=== PATIENT | female | born 1985 | race Caucasian/White ===

== ENCOUNTER 2017-09-07 12:56 | Emergency (ER) | payer OTHER ==
[~2017-09-07] VITALS: Ht 160 cm; Wt 54.4 kg
[~2017-09-07 12:56] MED LIST: OMEPRAZOLE40 M1 PO; PERCOCET 5-3251 EACH PO; ZOFRAN ODT4 M1 SL
[2017-09-07 14:16] LABS: ABSOLUTE BASOPHIL COUNT 0 /CUMM (0.0-0.2); ABSOLUTE EOSINOPHIL COUNT 0 /CUMM (0.0-0.7); ABSOLUTE GRANULOCYTE CT 5.3 /CUMM (1.4-6.5); ABSOLUTE LYMPH COUNT 1.2 /CUMM (1.2-3.4); ABSOLUTE MONOCYTE COUNT 0.4 /CUMM (0.10-0.60); BASOPHIL % 0.6 % (0.0-2.0); EOSINOPHIL % 0.4 % (0-5); GRANULOCYTE % 75.8 % (42.2-75.2); HEMATOCRIT 36.3 % (37-47); MEAN CORPUSCULAR HGB 31.6 PG (27.0-31.0); MEAN CORPUSCULAR VOLUME 93.1 FL (81.0-99.0); MEAN PLATELET VOLUME 8.3 FL (7.4-10.4); PLATELET COUNT 227 /CUMM (130-400); RBC DISTRIBUTION WIDTH 13.6 % (11.5-14.5)
--- NOTE | 2017-09-07 14:20 | ED GI/GU/ABDOMINAL COMPLAINT ---
History of Present Illness General Chief Complaint: Female Urogenital Problems Stated Complaint: SOBBING "MY LEFT OVARY", VOMITING Source: patient, old records Exam Limitations: no limitations Vital Signs & Intake/Output Vital Signs & Intake/Output Vital Signs Date Time Temp Pulse Resp B/P B/P Pulse O2 O2 Flow FiO2 Mean Ox Delivery Rate 09/07 1644 77 18 113/69 100 Room Air ED Intake and Output 09/08 0000 09/07 1200 Intake Total Output Total Balance Patient 120 lb Weight Weight Reported by Patient Measurement Method Allergies Coded Allergies: Sulfa (Sulfonamide Antibiotics) (Severe, HIVES 08/31/17) metronidazole (From FLAGYL) (Severe, N/V/D 08/31/17) Reconcile Medications Clonazepam 1 MG TABLET 1 TAB PO BID ANXIETY (Reported) Clonazepam (Klonopin) 0.5 MG TABLET 1 TAB PO DAILY NEEDED PRN ANXIETY ( Reported) Gabapentin 100 MG CAPSULE 2 CAP PO TID ANXIETY (Reported) Nicotine Polacrilex (Nicotine Gum) 2 MG GUM 2 MG PO PRN SMOKING CESSATION ( Reported) Norethindrone-E.estradiol-Iron (Junel Fe 1 MG-20 Mcg Tablet) 1 MG-20 MCG (21)/75 MG (7) TABLET 1 TAB PO DAILY CONTROL (Reported) Omeprazole 40 MG CAPSULE.DR 1 CAP PO DAILY ACID REFLUX Ondansetron (Zofran Odt) 4 MG TAB.RAPDIS 1 TAB SL TID NAUSEA Ondansetron (Zofran Odt) 4 MG TAB.RAPDIS 1 TAB SL TID PRN nausea Oxycodone HCl/Acetaminophen (Percocet 5-325 MG Tablet) 5 MG-325 MG TABLET 1 TAB PO BID PAIN Oxycodone HCl/Acetaminophen (Percocet 5-325 MG Tablet) 5 MG-325 MG TABLET 1 TAB PO BID PRN pain Prazosin HCl (Unknown Strength) CAPSULE (Unknown Dose) UNKNOWN (Reported) Sertraline HCl (Unknown Strength) TABLET (Unknown Dose) UNKNOWN (Reported) Triage Note: TRIAGE: 31 Y/O FEMALE W EXTENSIVE GI HISTORY: J POUCH, C DIFF (IN THE PAST FROM ABX THAT CAUSED TOXIC MEGACOLON). C/O LEFT OVARY PAIN SINCE LAST NIGHT AT 2100. *NOT ACTIVELY BEING TREATED FOR C-DIFF Triage Nurses Notes Reviewed? yes ? n Is pt currently ? 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 Patient states pain feels as thought it is related to her left ovary. Patient has history of ovarian cyst and cyst rupture in the past, she is unsure of pain is the same. Pain began last night and has been gradually worsening since onset. Currrently pain is described as severe, 10/10. Patient also notes dysuria beginning today. The patient denies fevers, chills, vomiting,diarrhea. (Heather Montez) Past History Travel History Traveled to [place] past 21 day No Medical History Any Pertinent Medical History? see below for history Neurological: NONE EENT: NONE Cardiovascular: NONE Respiratory: NONE Gastrointestinal: C.DIFF COLITIS J. POUCH Hepatic: NONE Renal: NONE Musculoskeletal: NONE Psychiatric: NONE Endocrine: NONE Blood Disorders: NONE Cancer(s): NONE TRADEMARK ATTORNEY/Reproductive: NONE Surgical History Surgical History: cOMPLETE COLECTOMY Psychosocial History What is your primary language Icelandic Tobacco Use: Current Daily Use Daily Tobacco Use Amount/Type: => 5 Cigarettes daily ETOH Use: occasional use Illicit Drug Use: denies illicit drug use Family History Hx Contributory? No (Heather Montez) Review of Systems Review of Systems Constitutional: Reports: no symptoms. EENTM: Reports: no symptoms. Respiratory: Reports: no symptoms. Cardiovascular: Reports: no symptoms. GI: Reports: see HPI. Genitourinary: Reports: see HPI. Musculoskeletal: Reports: no symptoms. Skin: Reports: no symptoms. Neurological/Psychological: Reports: no symptoms. Hematologic/Endocrine: Reports: no symptoms. Immunologic/Allergic: Reports: no symptoms. All Other Systems: Reviewed and Negative (Heather Montez) Physical Exam Physical Exam General Appearance: well developed/nourished, no apparent distress, alert, awake Head: atraumatic, normal appearance Eyes: Bilateral: normal appearance. Ears, Nose, Throat, Mouth: hearing grossly normal Neck: normal inspection, supple, full range of motion Respiratory: normal breath sounds, no respiratory distress, lungs clear Cardiovascular: regular rate/rhythm Gastrointestinal: normal bowel sounds, soft, no organomegaly, LLQ tenderness Back: normal inspection, normal range of motion, no CVA tenderness Extremities: normal range of motion Neurologic/Psych: awake, alert, oriented x 3 Skin: intact, normal color, warm/dry Core Measures ACS in differential dx? No Sepsis Present: No Sepsis Focused Exam Completed? No (Precious REYES,Heather Solorio) Progress Differential Diagnosis: appendicitis, bowel obstruction, colon cancer, cholecystitis, diverticulitis, ectopic , gastritis, hernia, kidney stone, ovarian cyst, ovarian torsion, PID/cervicitis, SBO, threatened AB, UTI/ pyelo Plan of Care: Orders Procedure Date/time Status Add-on Test (ER Only) 09/07 141 Active LIPASE 09/07 1408 Complete AMYLASE 09/07 1408 Complete URINE DRUGS OF ABUSE 09/07 133 Complete URINE 09/07 133 Complete URINALYSIS 09/07 1332 Complete COMPREHENSIVE METABOLIC PANEL 09/07 1332 Complete CBC WITHOUT DIFFERENTIAL 09/07 1332 Complete Laboratory Tests 09/07/17 1420: Urine Opiates Screen < 100, Methadone Screen < 40, Barbiturate Screen < 60, Ur Phencyclidine Scrn < 6.00, Amphetamines Screen 109, U Benzodiazepines Scrn 132, Urine Cocaine Screen < 50, Urine Cannabis Screen < 5.00, Urine Color YEL, Urine Clarity CLEAR, Urine pH 6.5, Ur Specific [place] 1.015, Urine Protein NEG, Urine Ketones NEG, Urine Nitrite NEG, Urine Bilirubin NEG, Urine Urobilinogen 0.2, Ur Leukocyte Esterase NEG, Ur Microscopic EXAM NOT REQUIRED, Urine Hemoglobin NEG, Urine Glucose NEG, Urine Test NEGATIVE 09/07/17 1408: Anion Gap 8, Estimated GFR > 60, BUN/Creatinine Ratio 11.3, Glucose 85, Calcium 8.9, Total Bilirubin 0.5, AST 18, ALT 26, Alkaline Phosphatase 24, Total Protein 6.2 L, Albumin 3.6, Globulin 2.6, Albumin/Globulin Ratio 1.4, Amylase 53, Lipase 48, CBC w Diff NO MAN DIFF REQ, RBC 3.90 L, MCV 93.1, MCH 31.6 H, MCHC 34.0, RDW 13.6, MPV 8.3, Gran % 75.8 H, Lymphocytes % 16.8 L, Monocytes % 6.4, Eosinophils % 0.4, Basophils % 0.6, Absolute Granulocytes 5.3, Absolute Lymphocytes 1.2, Absolute Monocytes 0.4, Absolute Eosinophils 0, Absolute Basophils 0 Patient has visited this emergency department twice this month and had two abdominal CT scans within the past 8 days. Will start with ultrasound for further evaluation of this patient's abdominal pain. Ultrasound shows left sided ovarian cyst. Patient's labs are stable, no leukocytosis. No evidence of acute urinary tract infection. Patient's left lower quadrant pain is likely related to ovarian cyst. Patient reports improvement following IV pain medications. She feels ready to go home at this time. She is instructed to follow-up with her BIOLOGY LABORATORY ASSISTANT. She was given strict return precautions. The patient agrees with the plan of care. Diagnostic Imaging: Viewed by Me: Ultrasound. Discussed w/RAD: Ultrasound. Radiology Impression: PATIENT: KALANI MCKENZIE PRESENT AGE: 31 PATIENT ACCOUNT NO: [id number] : 84 LOCATION: [facility] ORDERING PHYSICIAN: Heather REYES SERVICE DATE: 09/07/17 EXAM TYPE: US - US-TRANSVAGINAL EXAMINATION: US TRANSVAGINAL CLINICAL INFORMATION: Left lower quadrant pain. COMPARISON: CT images of abdomen pelvis from 09/02/2017 TECHNIQUE : Sonographic imaging of the pelvis was performed using transabdominal and transvaginal transducers. FINDINGS: The normal, anteflexed uterus measures approximately 6.2 cm long, 3 cm AP and 5.9 cm transverse. The myometrial echotexture is normal. No uterine leiomyoma. The endometrium is normal; it measures up to 0.4 cm AP. The cervix is normal. The cervical canal is 3.1 cm in length. The right ovary, which is seen on transabdominal imaging, measures 1.7 x 1.2 x 0.9 cm. The left ovary measures 5 x 4.1 x 4.9 cm. Within the ovary, there is a 4.2 x 3.8 x 3.7 cm anechoic cyst. The thin, curvilinear structure posteriorly appears to represent the cyst wall outlined by a small amount of fluid located posterior to the cyst. No papillary projections or mural nodules within the cyst. Color Doppler images show low resistance arterial flow within the peripheral ovarian tissue. No evidence of ovarian torsion. No free fluid in the cul-de-sac. IMPRESSION: - Left ovarian cyst measures up to 4.2 cm. Small amount of fluid is seen posterior to the cyst. However, no free fluid is identified in the cul-de-sac. No evidence of ovarian torsion. - The right ovary is normal. - The uterus is normal. DICTATED BY: Blayne Stevens MD DATE/TIME DICTATED:09/07/171603 CANDLE CUTTER:MADIE DATE/TIME TRANSCRIBED:1603 CONFIDENTIAL, DO NOT COPY WITHOUT APPROPRIATE AUTHORIZATION. < Electronically signed in Other Vendor System> SIGNED BY: Blayne Stevens MD 09/07/17 1619 Initial ED EKG: none (Precious REYES,Heather Solorio) Departure Departure Disposition: HOME OR SELF CARE Condition: Stable Clinical Impression Primary Impression: Ovarian cyst Qualifiers: Laterality: left Qualified Code: N83.202 - Unspecified ovarian cyst , left side Secondary Impressions: Abdominal pain Qualifiers: Abdominal location: left lower quadrant Qualified Code: R10.32 - Left lower quadrant pain Referrals: Damon Mora MD (PCP/Family) Additional Instructions: Follow up with BIOLOGY LABORATORY ASSISTANT regarding your ovarian cyst. REturn with worsening symptoms or concerns. Please note that there might be incidental findings in your evaluation that are unrelated to the current emergency department visit. Please notify your primary care doctor about this emergency department visit in order to obtain and review all of the testing performed so that these incidental findings can be monitored as needed. If you had an x-ray performed, please understand that some fractures may not be seen on the initial set of x-rays. If your symptoms persist you might need a repeat set of x-rays to check for such a fracture. If you had a laceration evaluated, please understand that foreign bodies such as glass or wood may not be visible to the naked eye or on plain x-rays. If the wound becomes red, swollen, increasingly more painful or if there is any drainage from the wound, please have it reevaluated by a physician for the possibility of a retained foreign body. If you're unable to follow up as outlined in the discharge instructions please return to the emergency department. Thank you for choosing the [facility] Emergency Department for your care. It was a pleasure to serve you today. Departure Forms: Customer Survey General Discharge Information Prescriptions: Current Visit Scripts Ondansetron (Zofran Odt) 1 TAB SL TID PRN nausea #10 TAB Oxycodone HCl/Acetaminophen (Percocet 5-325 MG Tablet) 1 TAB PO BID PRN pain #8 TAB (Precious REYES,Heather Solorio) PA/FROG FARMER Co-Sign Statement Statement: ED Attending supervision documentation- I saw and evaluated the patient. I have also reviewed all the pertinent lab results and diagnostic results. I agree with the findings and the plan of care as documented in the PA's/FROG FARMER's documentation. x I have reviewed the ED Record and agree with the PA's/FROG FARMER's documentation. [] Additions or exceptions (if any) to the PAs/FROG FARMER's note and plan are summarized below: [] (Santo VEGAS,Juan Pablo)
[2017-09-07] MEDS ORDERED: GABAPENTIN100 M2 PO (14:30)
[2017-09-07] MEDS ORDERED: KLONOPIN0.5 M1 PO (14:31)
[2017-09-07] MEDS ORDERED: CLONAZEPAM1 M2 PO (14:31)
[2017-09-07] MEDS ORDERED: SERTRALINE HCL100 MG (14:32)
[2017-09-07] MEDS ORDERED: JUNEL FE 1 MG-1 EACH PO (14:32)
[2017-09-07] MEDS ORDERED: PRAZOSIN HCL2 M1 (14:32)
[2017-09-07] MEDS ORDERED: NICOTINE GUM2 MG PO (14:33)
--- NOTE | 2017-09-07 16:19 | ULTRASOUND REPORT ---
EXAMINATION: US TRANSVAGINAL CLINICAL INFORMATION: Left lower quadrant pain. COMPARISON: CT images of abdomen pelvis from 09/02/2017 TECHNIQUE: Sonographic imaging of the pelvis was performed using transabdominal and transvaginal transducers. FINDINGS: The normal, anteflexed uterus measures approximately 6.2 cm long, 3 cm AP and 5.9 cm transverse. The myometrial echotexture is normal. No uterine leiomyoma. The endometrium is normal; it measures up to 0.4 cm AP. The cervix is normal. The cervical canal is 3.1 cm in length. The right ovary, which is seen on transabdominal imaging, measures 1.7 x 1.2 x 0.9 cm. The left ovary measures 5 x 4.1 x 4.9 cm. Within the ovary, there is a 4.2 x 3.8 x 3.7 cm anechoic cyst. The thin, curvilinear structure posteriorly appears to represent the cyst wall outlined by a small amount of fluid located posterior to the cyst. No papillary projections or mural nodules within the cyst. Color Doppler images show low resistance arterial flow within the peripheral ovarian tissue. No evidence of ovarian torsion. No free fluid in the cul-de-sac. IMPRESSION: - Left ovarian cyst measures up to 4.2 cm. Small amount of fluid is seen posterior to the cyst. However, no free fluid is identified in the cul-de-sac. No evidence of ovarian torsion. - The right ovary is normal. - The uterus is normal.
[2017-09-07 16:44] VITALS: BP 113/69
[2017-09-07] MEDS ORDERED: PERCOCET 5-3251 EACH PO (16:53)
[2017-09-07] MEDS ORDERED: ZOFRAN ODT4 M1 SL (16:53)
== END 2017-09-07 17:03 ==
LOC: ERH 12:56
PROVIDERS: Physician Assistant
DX: N83.202 Unspecified ovarian cyst, left side (principal); R10.32 Left lower quadrant pain
CPT/HCPCS: 80307; 81003; 81025; 96374; 96375; J1885; J2405

== ENCOUNTER → 2017-09-12 | Day surgery (SDC) | payer OTHER ==
[~2017-09-12] VITALS: Ht 160 cm; Wt 56.2 kg
[~2017-09-12] MED LIST changes: +CLONAZEPAM1 M2 PO; +GABAPENTIN100 M2 PO; +IMODIUM A-D2 M1 PO; +JUNEL FE 1 MG-1 EACH PO; +KLONOPIN0.5 M1 PO; +NICOTINE GUM2 MG PO; +PRAZOSIN HCL2 M1; +REGLAN10 M1 PO; +SERTRALINE HCL100 MG
[2017-09-12 11:05] LABS: ABSOLUTE BASOPHIL COUNT 0 /CUMM (0.0-0.2); ABSOLUTE EOSINOPHIL COUNT 0.1 /CUMM (0.0-0.7); ABSOLUTE GRANULOCYTE CT 4.4 /CUMM (1.4-6.5); ABSOLUTE LYMPH COUNT 1.8 /CUMM (1.2-3.4); ABSOLUTE MONOCYTE COUNT 0.5 /CUMM (0.10-0.60); BASOPHIL % 0.3 % (0.0-2.0); EOSINOPHIL % 1.3 % (0-5); GRANULOCYTE % 64.4 % (42.2-75.2); HEMATOCRIT 36.5 % (37-47); MEAN CORPUSCULAR HGB 31.8 PG (27.0-31.0); MEAN CORPUSCULAR HGB CONC 34.2 G/DL (33.0-37.0); MEAN CORPUSCULAR VOLUME 92.7 FL (81.0-99.0); MEAN PLATELET VOLUME 8.8 FL (7.4-10.4); PLATELET COUNT 224 /CUMM (130-400); RBC DISTRIBUTION WIDTH 12.4 % (11.5-14.5); RED BLOOD CELL CT 3.93 /CUMM (4.20-5.40); WHITE BLOOD CELL COUNT 6.8 /CUMM (4.8-10.8)
--- NOTE | 2017-09-12 11:52 | ED GENERAL ADULT ---
See Addendum History of Present Illness General Chief Complaint: Female Urogenital Problems Stated Complaint: OVARIAN CYST Source: patient Exam Limitations: no limitations Vital Signs & Intake/Output Vital Signs & Intake/Output Vital Signs Date Time Temp Pulse Resp B/P B/P Pulse O2 O2 Flow FiO2 Mean Ox Delivery Rate 09/12 1031 98.1 100 18 124/83 99 Room Air Allergies Coded Allergies: Sulfa (Sulfonamide Antibiotics) (Severe, HIVES 08/31/17) metronidazole (From FLAGYL) (Severe, N/V/D 08/31/17) Reconcile Medications Clonazepam 1 MG TABLET 1 TAB PO BID ANXIETY (Reported) Clonazepam (Klonopin) 0.5 MG TABLET 1 TAB PO DAILY NEEDED PRN ANXIETY ( Reported) Gabapentin 100 MG CAPSULE 2 CAP PO TID ANXIETY (Reported) Loperamide HCl (Imodium A-D) 2 MG TABLET 0 PO SEE ADMIN CRITERIA PRN diarrhea 1 tab after each loose stool up to 7 per day Metoclopramide HCl (Reglan) 10 MG TABLET 1 TAB PO 4 TIMES/DAY PRN n/v 30 minutes before meals and bedtime Nicotine Polacrilex (Nicotine Gum) 2 MG GUM 2 MG PO PRN SMOKING CESSATION ( Reported) Norethindrone-E.estradiol-Iron (Junel Fe 1 MG-20 Mcg Tablet) 1 MG-20 MCG (21)/75 MG (7) TABLET 1 TAB PO DAILY CONTROL (Reported) Omeprazole 40 MG CAPSULE.DR 1 CAP PO DAILY ACID REFLUX Ondansetron (Zofran Odt) 4 MG TAB.RAPDIS 1 TAB SL TID PRN nausea Oxycodone HCl/Acetaminophen (Percocet 5-325 MG Tablet) 5 MG-325 MG TABLET 1-2 TAB PO Q6P PRN severe pain Prazosin HCl (Unknown Strength) CAPSULE (Unknown Dose) UNKNOWN (Reported) Sertraline HCl (Unknown Strength) TABLET (Unknown Dose) UNKNOWN (Reported) Triage Note: 31F TO ED, SEEN 5 TIMES THIS MONTH FOR L OVARIAN CYST PAIN. SIB DR MELANIE LEE TO R/O TORSION AND POSSIBLE SURGICAL REMOVAL TODAY. PT ON PERCOCET FOR PAIN BUT NOT EFFECTIVE. DENIES VOMITING. AFEBRILE Triage Nurses Notes Reviewed? yes Onset: Abrupt Duration: day(s): Timing: recent history : No Patient currently breastfeeds: No HPI: 09/12/17 12:31 PM 31-year-old female presents to the emergency department complaining of ongoing left lower quadrant abdominal pain. She has a history of a left ovarian cyst. She was seen in the emergency department yesterday. She is failed outpatient treatment. She was instructed by her VENDING ATTENDANT Dr. Almodovar to come to the emergency department for reevaluation. She denies any fever. Past History Travel History Traveled to [place] past 21 day No Medical History Any Pertinent Medical History? see below for history Neurological: NONE EENT: NONE Cardiovascular: NONE Respiratory: NONE Gastrointestinal: C.DIFF COLITIS J. 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 No Review of Systems Review of Systems Constitutional: Denies: fever. EENTM: Reports: no symptoms. Respiratory: Reports: no symptoms. Cardiovascular: Reports: no symptoms. GI: Reports: see HPI. Genitourinary: Reports: no symptoms. Musculoskeletal: Reports: no symptoms. Skin: Reports: no symptoms. Neurological/Psychological: Reports: no symptoms. Hematologic/Endocrine: Reports: no symptoms. Immunologic/Allergic: Reports: no symptoms. Physical Exam Physical Exam General Appearance: well developed/nourished, alert, awake, anxious, moderate distress Head: atraumatic, normal appearance Eyes: Bilateral: normal appearance, PERRL, EOMI. Ears, Nose, Throat: normal pharynx, normal ENT inspection, hearing grossly normal Neck: normal inspection, supple, full range of motion Respiratory: normal breath sounds, chest non-tender, no respiratory distress Cardiovascular: regular rate/rhythm Peripheral Pulses: 4+ radial (R), 4+ radial (L) Gastrointestinal: soft, tenderness (LLQ) Back: normal range of motion Extremities: normal inspection, normal range of motion, no edema Neurologic/Psych: no motor/sensory deficits, awake, alert, oriented x 3 Core Measures ACS in differential dx? No CVA/TIA Diagnosis: No Sepsis Present: No Sepsis Focused Exam Completed? No Progress Differential Diagnoses I considered the following diagnoses in my evaluation of the patient: [Ovarian torsion, hemorrhagic ovarian cyst, ruptured ovarian cyst] Plan of Care: Orders Procedure Date/time Status URINALYSIS 09/12 1104 Complete HUMAN BETA HCG SCREEN 09/12 1033 Complete CBC WITHOUT DIFFERENTIAL 09/12 1033 Complete BASIC METABOLIC PANEL 09/12 1033 Complete Laboratory Tests 09/12/17 1108: Urine Color YEL, Urine Clarity CLEAR, Urine pH 6.0, Ur Specific [place] 1.010, Urine Protein NEG, Urine Ketones NEG, Urine Nitrite NEG, Urine Bilirubin NEG, Urine Urobilinogen 0.2, Ur Leukocyte Esterase NEG, Ur Microscopic EXAM NOT REQUIRED, Urine Hemoglobin NEG, Urine Glucose NEG 09/12/17 1055: Anion Gap 11, Estimated GFR > 60, BUN/Creatinine Ratio 11.4, Glucose 95, Calcium 8.7, Total Beta HCG NEGATIVE, CBC w Diff NO MAN DIFF REQ, RBC 3.93 L, MCV 92.7, MCH 31.8 H, MCHC 34.2, RDW 12.4, MPV 8.8, Gran % 64.4, Lymphocytes % 26.3, Monocytes % 7.7, Eosinophils % 1.3, Basophils % 0.3, Absolute Granulocytes 4.4, Absolute Lymphocytes 1.8, Absolute Monocytes 0.5, Absolute Eosinophils 0.1, Absolute Basophils 0 Initial ED EKG: none Departure Departure Disposition: STILL A PATIENT Condition: Stable Clinical Impression Primary Impression: Ovarian cyst Referrals: Damon Mora MD (PCP/Family) Departure Forms: Customer Survey General Discharge Information Comments 09/12/17 Recent ultrasound shown below-the ultrasound is pending: PATIENT: KALANI MCKENZIE PRESENT AGE: 31 PATIENT ACCOUNT NO: [id number] : 84 LOCATION: [facility] ORDERING PHYSICIAN: Heather REYES SERVICE DATE: 09/07/17 EXAM TYPE: US - US-TRANSVAGINAL EXAMINATION: US TRANSVAGINAL CLINICAL INFORMATION: Left lower quadrant pain. COMPARISON: CT images of abdomen pelvis from 09/02/2017 TECHNIQUE: Sonographic imaging of the pelvis was performed using transabdominal and transvaginal transducers. FINDINGS: The normal, anteflexed uterus measures approximately 6.2 cm long, 3 cm AP and 5.9 cm transverse. The myometrial echotexture is normal. No uterine leiomyoma. The endometrium is normal; it measures up to 0.4 cm AP. The cervix is normal. The cervical canal is 3.1 cm in length. The right ovary, which is seen on transabdominal imaging, measures 1.7 x 1.2 x 0.9 cm. The left ovary measures 5 x 4.1 x 4.9 cm. Within the ovary, there is a 4.2 x 3.8 x 3.7 cm anechoic cyst. The thin, curvilinear structure posteriorly appears to represent the cyst wall outlined by a small amount of fluid located posterior to the cyst. No papillary projections or mural nodules within the cyst. Color Doppler images show low resistance arterial flow within the peripheral ovarian tissue. No evidence of ovarian torsion. No free fluid in the cul-de-sac. IMPRESSION: - Left ovarian cyst measures up to 4.2 cm. Small amount of fluid is seen posterior to the cyst. However, no free fluid is identified in the cul-de-sac. No evidence of ovarian torsion. - The right ovary is normal. - The uterus is normal. DICTATED BY: Blayne Stevens MD DATE/TIME DICTATED:09/07/171603 [employer] CREWMEMBER:MADIE DATE/TIME TRANSCRIBED:09/07/171603 CONFIDENTIAL, DO NOT COPY WITHOUT APPROPRIATE AUTHORIZATION. <Electronically signed in Other Vendor System> SIGNED BY: Blayne Stevens MD 09/07/171618 Dr Urbano was patient. The patient will be signed out to ERIC schilling. She was treated with IV fluids and IV morphine for pain. Critical Care Note Critical Care Note Critical Care Time: non-applicable
--- NOTE | 2017-09-12 12:31 | ULTRASOUND REPORT ---
EXAMINATION: US PELVIS COMPLETE US PELVIS TRANSVAGINAL CLINICAL INFORMATION: Left lower quadrant pain. Known ovarian cyst. Evaluate for torsion COMPARISON: Ultrasound 09/07/2017. CT 09/02/2017 and earlier TECHNIQUE: Transabdominal and transvaginal images of the pelvis were obtained. Color and spectral Doppler evaluation of the ovaries was performed. FINDINGS: UTERUS: Anteverted. Normal size and contour, measuring 8.9 x 4.3 x 5.9 cm (cervix to fundus x AP x transverse). Uniform, homogeneous endometrium measures 0.4 cm in width. The cervical length is 2.7 cm. RIGHT OVARY: Normal size and echogenicity measuring 3.0 x 1.3 x 2.2 cm. 4.5 mL volume. Subcentimeter physiologic follicular cyst is seen. Normal arterial and venous spectral Doppler waveforms are identified. LEFT OVARY: Normal size and echogenicity measuring 4.9 x 3.5 x 4.4 cm. There is a physiologic dominant 4 cm cyst seen. Normal arterial and venous spectral Doppler waveforms are identified. FREE FLUID: No pelvic free fluid. IMPRESSION: Normal grayscale and spectral Doppler appearance of both ovaries, strong evidence against active ovarian torsion at the time of the scan.
--- NOTE | 2017-09-12 12:58 | PN- OBGYN ---
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 Patient dx with ovarian cyst this past week. Informed to return in worsening pain. States seen in ED last night but today when I called her the pain was back to a 9. No evidence of torsion on ultrasound today however with pain scale at this level 10% chance still of torsion and conservative mgmt not indicated in my opinoin any longer. History of colectomy with midline incision. I informed patient that I will proceed with operative laparoscopy and assessment and removal of ovarian cyst on the left which is simple follicular in nature. She was added on to the OR schedule. Reviewed care with patient and Dr Crane Hcg negative and UA negative Abdomen soft and tenderness in LLQ and no rebound. History of appendectomy as well.
[2017-09-12 14:17] VITALS: BP 117/75
--- NOTE | 2017-09-13 00:05 | Operative Report ---
Operative/Inv Procedure Report Surgery Date: 09/12/17 Name of Procedure: Operative laparoscopy and left ovarian cystectomy and lysis of adhesions Pre-Operative Diagnosis: Ovarian cyst left sided Post-Operative Diagnosis: Same and pelvic adhesions Estimated Blood Loss: less than 50ml Surgeon/Flat Sheet Maker: Lasha Almodovar Intraoperative consult by Dr Alexis Anesthesia: general endotracheal tube Monitors: Per anesthesiology IV Fluids: 1200 cc Urine Output: 300 cc Drains: NA Specimens: Ovarian cyst wall Microbiology: NA Complications: None Condition: Stable to RR Operative Indication: 31 year old female with left ovarian cyst. Patient seen in the ED twice in the course of one week with worseing pain but no evidence of torsion by ultrasound. Patient was requiring narcotics for pain relief and it was still episodic in nature. Decision was made for operative laparoscopy and ovarian cystectomy. Consent obtained in the ED for same with risks of pain, bleeding, infection, vte , damage to local organs such as bowel and bladder and nerve. All questions were answered and patient was accepting of the plan for surgical intervention as convervative measures had failed. Operative/Procedure Note Note: Patient taken to OR and prepped in usual sterile fashion.Time out was done prior to procedure. Patient was given GET and then arms tucked in and placed in dorsal lithotomy position. The abdomen was prepped with chloraprep and the vaginal area with betadine.Dan was inserted and clear urine drained. Speculum placed and tenaculum placed on anterior lip of the cervix. Uterine manipulator placed after dilation of cervix with ariel dilators. Speculum and tenaculum removed. Attention turned to the abdomen. NGT placed and first incision made at Lamar's point (mid clavicular line and 3 cm below costal margin). This due to vertical incision previously with her colectomy in the past. 11 blade used to make 5 mm incision and this was after infiltration with 2 cc of marcaine. Veress needed inserted and and pneumoperitoneum atttempted to be achieved. 5 mm optiport attempted to be placed. Difficulty was encountered at this time due to tracking of the port site blade. Intraop consult obtained by Dr Alexis and subsequent to that abdominal cavity was entered. No trauma to underlying organs. Noted midline filmy adhesions of omentum to anterior abdominal wall. This was dissected with LSC scissors. A 5 mm incision was made in the RLQ and after infiltration with marcaine 2 cc. Port placed in RLQ Another 5 mm port was placed in the LLQ after infiltation with marcaine 2 cc. At this time Uterus was anteflexed and noted filmy adhesions in pouch of dax and surrounding the right and left ovary and right and left tube. Also bowel was surrounding the left tube and ovary. Uterus had filmy adhesions anterior but it was mobile. Dissection began on the posterior adhesions to the uterus and extended towards the patients right so as to free the right adnexae. No endometriosis was noted during LSC. Once right side was free attention was turned to the left side. Graspers elevated the filmy adhesions and at this time the left ovary was freed. After this the bowel was bluntly and sharply dissected from the ovary. During this time it was entered and contents of the ovarian cyst were spilled. It was opened up during this time. It was a simple cyst in nature sonographically and laparoscopically. At this time methylene blue was injected into the uterine manipulator so as to assess tubal patency given the extensive adhesions. Dye was seen in both adnexae. Once the ovarian cyst was released from the complex of adhesions on the left than irrigation was done to the pelvis. Reece was placed into the ovarian fossa due to local bleeding. In addition electrocautery was done in the ovarian bed so as to obtain hemostasis. The LLQ and RLQ ports were removed. This was done after visualization of the LUQ port. There was no trauma to the area and none to the underlying bowel. All ports were removed and pneumoperitoneum released. She was taken out of trendelenberg position. All three LSC port sites were reapproximated with 3-0 viryl. Bandaids were placed on the port site wound areas. Instrument and lap count was correct x 2. Uterine manipulator and dan removed and taken out of lithotomy position. Alps were on the whole time of surgery. Extubated in OR and taken to RR in stable condition. Plan for follow up this coming week for postoperative visit. Postoperative findigns and expectations reviewed with patient and partner.
== END ==
LOC: ERH 10:27 → ER-OR 10:40 → STS 15:31
PROVIDERS: Physician Assistant
DX: N83.292 Other ovarian cyst, left side (principal); K21.9 Gastro-esophageal reflux disease without esophagitis; F17.200 Nicotine dependence, unspecified, uncomplicated
CPT/HCPCS: 81003; 87040; 96374; 96375; J0131; J1170; J1630; J2175; J2250; J2405; J3010; Q9968

== ENCOUNTER 2017-09-20 18:35 | Observation (INO) | payer OTHER ==
[~2017-09-20] VITALS: Ht 160 cm; Wt 56.2 kg
--- NOTE | 2017-09-20 19:11 | ED GI/GU/ABDOMINAL COMPLAINT ---
History of Present Illness General Chief Complaint: Abdominal Pain/Flank Pain Stated Complaint: OVARIAN CYST SURGERY 09/12, ABD PAIN,CHILLS Source: patient, old records Exam Limitations: no limitations Vital Signs & Intake/Output Vital Signs & Intake/Output Vital Signs Date Time Temp Pulse Resp B/P B/P Pulse O2 O2 Flow FiO2 Mean Ox Delivery Rate 09/21 0140 97.6 68 16 105/80 98 Room Air 09/20 2208 98.6 90 18 118/76 98 Room Air 09/20 1841 98.3 106 18 124/92 96 Room Air ED Intake and Output 09/21 0000 09/20 1200 Intake Total 1000 Output Total Balance 1000 Intake, IV 1000 Patient 124 lb Weight Allergies Coded Allergies: Sulfa (Sulfonamide Antibiotics) (Severe, HIVES, FLU LIKE SYMPTOMS 09/20/17) metronidazole (From FLAGYL) (Severe, N/V/D 08/31/17) Reconcile Medications Acetaminophen (Mapap) 325 MG TABLET 2 TAB PO TID PAIN (Reported) Ascorbic Acid (Vitamin C) (Unknown Strength) CAPSULE (Unknown Dose) PO DAILY SUPPLEMENT (Reported) Clonazepam 1 MG TABLET 1 TAB PO BID ANXIETY (Reported) Clonazepam (Klonopin) 0.5 MG TABLET 1 TAB PO DAILY NEEDED PRN ANXIETY ( Reported) Gabapentin (Neurontin) 300 MG CAPSULE 1 CAP PO TID ANXIETY (Reported) Ibuprofen (Motrin Ib) 200 MG TABLET 2 TAB PO TID PAIN/INFLAMMATION (Reported) Lidocaine 4 % CREAM..G. 1 TRISTIAN TOP 4XDAILY PRN PAIN (Reported) Loperamide HCl (Imodium A-D) 2 MG TABLET 0 PO SEE ADMIN CRITERIA PRN diarrhea 1 tab after each loose stool up to 7 per day Metoclopramide HCl (Reglan) 10 MG TABLET 1 TAB PO 4 TIMES/DAY PRN n/v 30 minutes before meals and bedtime Nicotine Polacrilex (Nicotine Gum) 2 MG GUM 2 MG PO PRN SMOKING CESSATION ( Reported) Norethindrone-E.estradiol-Iron (Junel Fe 1 MG-20 Mcg Tablet) 1 MG-20 MCG (21)/75 MG (7) TABLET 1 TAB PO DAILY CONTROL (Reported) Omeprazole 40 MG CAPSULE.DR 1 CAP PO DAILY ACID REFLUX Ondansetron (Zofran Odt) 4 MG TAB.RAPDIS 1 TAB SL TID PRN nausea Triage Note: PT TO ER C/C NAUSEA AND UPPER ABD PAIN X 6 HRS. PT HAS OVARIAN CYST REMOVED 09/12 W/O INCIDENT. TAKING MOTRIN AND TYLENOL W/O RELIEF. HX OF C.DIFF COLITIS AND J. POUCH, STATES STOOL IS VERY LOOSE AND DIARRHEA. Triage Nurses Notes Reviewed? yes ? N Is pt currently ? 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 Patient tolerated the procedure well, had some post-operative soreness but was otherwise well for the 8 days after surgery. Today around noon she experienced sharp pains to the LUQ where her surgical scar is, as well as RLQ pain where her other surgical scar is. The pain worsened and is now 10/10 with nausea. The LUQ pain radiates around to the left flank. She otherwise feels well. Denies fever, chills,headache, vomiting, chest pain, SOB, discharge from wounds, vaginal discharge. (Roxane Merlos MD) Past History Travel History Traveled to [place] past 21 day No Medical History Any Pertinent Medical History? see below for history Neurological: NONE EENT: NONE Cardiovascular: NONE Respiratory: NONE Gastrointestinal: C.DIFF COLITIS J. 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 No (Roxane Merlos MD) Review of Systems Review of Systems Constitutional: Reports: no symptoms. EENTM: Reports: no symptoms. Respiratory: Reports: no symptoms. Cardiovascular: Reports: no symptoms. GI: Reports: no symptoms. Genitourinary: Reports: no symptoms. Musculoskeletal: Reports: no symptoms. Skin: Reports: no symptoms. Neurological/Psychological: Reports: no symptoms. Hematologic/Endocrine: Reports: no symptoms. Immunologic/Allergic: Reports: no symptoms. All Other Systems: Reviewed and Negative (Roxane Merlos MD) Physical Exam Physical Exam General Appearance: well developed/nourished, moderate distress Head: atraumatic, normal appearance Eyes: Bilateral: normal appearance. Ears, Nose, Throat, Mouth: hearing grossly normal, moist mucous membrane Neck: normal inspection, supple, full range of motion Respiratory: normal breath sounds, chest non-tender, no respiratory distress Cardiovascular: regular rate/rhythm Gastrointestinal: tender LUQ Back: normal inspection, normal range of motion Extremities: normal range of motion Neurologic/Psych: awake, alert, oriented x 3, normal mood/affect Skin: well healing surgical wounds on abdomen without erythema, fluctuance, or discharge Core Measures ACS in differential dx? No Sepsis Present: No Sepsis Focused Exam Completed? No (Chelita VEGAS,Roxane) Progress Differential Diagnosis: AAA, AMI, appendicitis, biliary colic, bowel obstruction , colon cancer, cholecystitis, diverticulitis, ectopic , endometritis, esophageal varices, gastritis, hepatitis, hernia, hemorrhoids, ischemic bowel, inflamm bowel dis, intrauterine , kidney stone, Keturah-Roxann tear, ovarian cyst, ovarian torsion, pancreatitis, PID/cervicitis, peptic ulcer, PUD/ GERD, perforated viscous, SBO, threatened AB, UTI/pyelo Plan of Care: Orders Procedure Date/time Status Clear Liquid Diet 09/21 B Active Patient Data 09/21 0117 Active OXYGEN SETUP (GEN) 09/21 99 Active Saline Lock 09/[address] in observation 09/21 99 Active Vital Signs 09/21 99 Active Activity/Ambulation 09/21 99 Active Code Status 09/21 99 Active Intake & Output 09/20 2025 Active BLOOD CULTURE 09/20 1909 Active LIPASE 09/20 1909 Complete LACTIC ACID 09/20 1909 Complete HUMAN BETA HCG SCREEN 09/20 1909 Complete COMPREHENSIVE METABOLIC PANEL 09/20 1909 Complete CBC WITHOUT DIFFERENTIAL 09/20 1909 Complete Laboratory Tests 09/20/17 2210: Lactic Acid Cancelled 09/20/17 2030: Anion Gap 10, Estimated GFR > 60, BUN/Creatinine Ratio 12.5, Glucose 84, Lactic Acid 0.8, Calcium 8.8, Total Bilirubin 0.5, AST 23, ALT 31, Alkaline Phosphatase 25, Total Protein 6.5, Albumin 3.9, Globulin 2.6, Albumin/Globulin Ratio 1.5, Lipase 33, Total Beta HCG NEGATIVE 09/20/171923: CBC w Diff NO MAN DIFF REQ, RBC 4.18 L, MCV 91.7, MCH 32.6 H, MCHC 35.5, RDW 12.6, MPV 9.5, Gran % 67.8, Lymphocytes % 26.7, Monocytes % 4.7, Eosinophils % 0.7, Basophils % 0.1, Absolute Granulocytes 4.1, Absolute Lymphocytes 1.6, Absolute Monocytes 0.3, Absolute Eosinophils 0, Absolute Basophils 0 Microbiology 09/20 2029 BLOOD: Blood Culture - RECD 09/21 1923 BLOOD: Blood Culture - RECD Diagnostic Imaging: Viewed by Me: CT Scan. Discussed w/RAD: CT Scan. Radiology Impression: PATIENT: KALANI MCKENZIE PRESENT AGE: 31 PATIENT ACCOUNT NO: [id number] : 84 LOCATION: [facility] ORDERING PHYSICIAN: Roxane Merlos MD SERVICE DATE: 09/20/17 EXAM TYPE: CAT - CT ABD & PELVIS W IV CONTRAST EXAMINATION: CT ABD PELVIS W IV CONTRAST CLINICAL INFORMATION: Perforation versus obstruction versus strangulated bowel. Recent lab ovarian cyst removal 8 days ago. COMPARISON: 09/16/2017 TECHNIQUE: Multidetector volumetric imaging was performed from the superior aspect of the liver through the pubic symphysis 95 mL Optiray 320 injected. Sagittal and coronal reformatted images were obtained on the technologist's workstation. DLP: 267 mGy-cm FINDINGS: LOWER THORAX: Included lung bases are clear. HEPATOBILIARY: No focal hepatic lesions. No biliary ductal dilatation. GALLBLADDER: Gallbladder unremarkable. SPLEEN: Spleen is normal in size. PANCREAS: No focal mass or ductal dilatation. STOMACH AND GASTROINTESTINAL TRACT: Stomach is grossly unremarkable. There are postsurgical changes of prior partial colectomy, focal dilated colon adjacent to the suture line probably partial colonic ileus. There is no CT evidence of bowel obstruction. Previously described small amount of free air in the abdomen and pelvis still present however much less than prior exam. ADRENALS: No adrenal nodules. KIDNEYS/URETERS: No hydronephrosis, stones or solid mass lesions. URINARY BLADDER: Unremarkable PELVIC VISCERA: Unremarkable PERITONEUM: Most of the free air previously seen has been absorbed. Residual free air in the subcutaneous fat. LYMPH NODES: No lymphadenopathy. VASCULAR:Abdominal aorta normal in size, no aneurysm found. BONES, ABDOMINAL WALL AND SOFT TISSUES: Age-appropriate changes of the spine and skeletal system, no destructive osteolytic or osteosclerotic bone lesion found IMPRESSION: 1. Postsurgical changes in the pelvis of prior partial colonic resection, there is dilatation of colonic segments proximal to the suture line suggesting regional colonic ileus. 2. Free air bubble in the abdomen and pelvis and subcutaneous fat described on prior CT significantly decreased however not completely resolved yet. This is likely sequela of the prior operation. 3. No evidence of small bowel obstruction. DICTATED BY: Rachel Jung MD DATE/TIME DICTATED:09/20/172205 PRINCIPAL NETWORK ARCHITECT:MADIE DATE/TIME TRANSCRIBED:09/20/172205 CONFIDENTIAL, DO NOT COPY WITHOUT APPROPRIATE AUTHORIZATION. <Electronically signed in Other Vendor System> SIGNED BY: Erich VEGAS,Rachel 09/20/172218 Initial ED EKG: none (Chelita VEGAS,Roxane) Departure Departure Disposition: STILL A PATIENT Condition: Stable Clinical Impression Primary Impression: Ileus following gastrointestinal surgery Secondary Impressions: Intractable abdominal pain Referrals: Damon Mora MD (PCP/Family) Departure Forms: Customer Survey General Discharge Information Admission Note Documentation of Exam: Documentation of any treatments & extenuating circumstances including Concerns Regarding Discharge (functional status, medication knowledge or non-compliance, living conditions, etc.) that warrant an admission rather than observation: ileus with severe abdominal pain with ileus present near old colonic anastomotic site, will require admission for surgical and GI consults, NPO, IV hydration, pain control, resolution of ileus. (Roxane Merlos MD) Observation Note Spoke With: Marshall Polanco MD Physician Advisor Notified: RD VILLARREAL DO Place Patient In: Non-ED OBS Care Area Rationale for Observation: My rational for observation is as follows intractable pain with nausea, clear liquids, advance diet, IVF. (Santo VEGAS,Juan Pablo)
[2017-09-20 19:40] LABS: ABSOLUTE BASOPHIL COUNT 0 /CUMM (0.0-0.2); ABSOLUTE EOSINOPHIL COUNT 0 /CUMM (0.0-0.7); ABSOLUTE GRANULOCYTE CT 4.1 /CUMM (1.4-6.5); ABSOLUTE LYMPH COUNT 1.6 /CUMM (1.2-3.4); ABSOLUTE MONOCYTE COUNT 0.3 /CUMM (0.10-0.60); BASOPHIL % 0.1 % (0.0-2.0); EOSINOPHIL % 0.7 % (0-5); GRANULOCYTE % 67.8 % (42.2-75.2); HEMATOCRIT 38.3 % (37-47); MEAN CORPUSCULAR HGB 32.6 PG (27.0-31.0); MEAN CORPUSCULAR HGB CONC 35.5 G/DL (33.0-37.0); MEAN CORPUSCULAR VOLUME 91.7 FL (81.0-99.0); MEAN PLATELET VOLUME 9.5 FL (7.4-10.4); PLATELET COUNT 298 /CUMM (130-400); RBC DISTRIBUTION WIDTH 12.6 % (11.5-14.5); RED BLOOD CELL CT 4.18 /CUMM (4.20-5.40)
[2017-09-20] MEDS ORDERED: NEURONTIN300 M1 PO (20:15)
[2017-09-20] MEDS ORDERED: VITAMIN C500 M9 PO (20:17)
[2017-09-20] MEDS ORDERED: MOTRIN IB200 M1 PO (20:17)
[2017-09-20] MEDS ORDERED: MAPAP325 M1 PO (20:17)
[2017-09-20] MEDS ORDERED: LIDOCAINE5 GM TOP (20:18)
--- NOTE | 2017-09-20 22:19 | CT SCAN REPORT ---
EXAMINATION: CT ABD PELVIS W IV CONTRAST CLINICAL INFORMATION: Perforation versus obstruction versus strangulated bowel. Recent lab ovarian cyst removal 8 days ago. COMPARISON: 09/16/2017 TECHNIQUE: Multidetector volumetric imaging was performed from the superior aspect of the liver through the pubic symphysis 95 mL Optiray 320 injected. Sagittal and coronal reformatted images were obtained on the technologist's workstation. DLP: 267 mGy-cm FINDINGS: LOWER THORAX: Included lung bases are clear. HEPATOBILIARY: No focal hepatic lesions. No biliary ductal dilatation. GALLBLADDER: Gallbladder unremarkable. SPLEEN: Spleen is normal in size. PANCREAS: No focal mass or ductal dilatation. STOMACH AND GASTROINTESTINAL TRACT: Stomach is grossly unremarkable. There are postsurgical changes of prior partial colectomy, focal dilated colon adjacent to the suture line probably partial colonic ileus. There is no CT evidence of bowel obstruction. Previously described small amount of free air in the abdomen and pelvis still present however much less than prior exam. ADRENALS: No adrenal nodules. KIDNEYS/URETERS: No hydronephrosis, stones or solid mass lesions. URINARY BLADDER: Unremarkable PELVIC VISCERA: Unremarkable PERITONEUM: Most of the free air previously seen has been absorbed. Residual free air in the subcutaneous fat. LYMPH NODES: No lymphadenopathy. VASCULAR:Abdominal aorta normal in size, no aneurysm found. BONES, ABDOMINAL WALL AND SOFT TISSUES: Age-appropriate changes of the spine and skeletal system, no destructive osteolytic or osteosclerotic bone lesion found IMPRESSION: 1. Postsurgical changes in the pelvis of prior partial colonic resection, there is dilatation of colonic segments proximal to the suture line suggesting regional colonic ileus. 2. Free air bubble in the abdomen and pelvis and subcutaneous fat described on prior CT significantly decreased however not completely resolved yet. This is likely sequela of the prior operation. 3. No evidence of small bowel obstruction.
--- NOTE | 2017-09-21 00:24 | Cons- General Surgery ---
General Information and HPI Consulting Request Date of Consult: 09/21/17 Requested By: ER History of Present Illness: Patient seen in consultation for abdominal pain. She has a complicated surgical history for total abdominal colectomy with ileostomy 10 years ago in [place], s/p reversal with "J" pouch. There has been once yearly pouchitis. Now s/p laparoscopic ovarian cystectomy two weeks ago with Dr. Almodovar. Patient was convalescing well until today at which time she developed severe abdominal pain and nausea. No vomiting. erinn function preserved. Points to LUQ. Allergies/Medications Allergies: Coded Allergies: Sulfa (Sulfonamide Antibiotics) (Severe, HIVES, FLU LIKE SYMPTOMS 09/20/17) metronidazole (From FLAGYL) (Severe, N/V/D 08/31/17) Home Med List: Acetaminophen (Mapap) 325 MG TABLET 2 TAB PO TID PAIN (Reported) Ascorbic Acid (Vitamin C) (Unknown Strength) CAPSULE (Unknown Dose) PO DAILY SUPPLEMENT (Reported) Clonazepam 1 MG TABLET 1 TAB PO BID ANXIETY (Reported) Clonazepam (Klonopin) 0.5 MG TABLET 1 TAB PO DAILY NEEDED PRN ANXIETY ( Reported) Gabapentin (Neurontin) 300 MG CAPSULE 1 CAP PO TID ANXIETY (Reported) Ibuprofen (Motrin Ib) 200 MG TABLET 2 TAB PO TID PAIN/INFLAMMATION (Reported) Lidocaine 4 % CREAM..G. 1 TRISTIAN TOP 4XDAILY PRN PAIN (Reported) Loperamide HCl (Imodium A-D) 2 MG TABLET 0 PO SEE ADMIN CRITERIA PRN diarrhea 1 tab after each loose stool up to 7 per day Metoclopramide HCl (Reglan) 10 MG TABLET 1 TAB PO 4 TIMES/DAY PRN n/v 30 minutes before meals and bedtime Nicotine Polacrilex (Nicotine Gum) 2 MG GUM 2 MG PO PRN SMOKING CESSATION ( Reported) Norethindrone-E.estradiol-Iron (Junel Fe 1 MG-20 Mcg Tablet) 1 MG-20 MCG (21)/75 MG (7) TABLET 1 TAB PO DAILY CONTROL (Reported) Omeprazole 40 MG CAPSULE.DR 1 CAP PO DAILY ACID REFLUX Ondansetron (Zofran Odt) 4 MG TAB.RAPDIS 1 TAB SL TID PRN nausea Current Medications: Current Medications Sig/Radha Start time Last Medication Dose Route Stop Time Status Admin Hydromorphone HCl 1 MG ONCE ONE 09/20 2044 DC 09/20 IV 09/20 Hydromorphone HCl 0 .STK-MED ONE 09/20 2042 DC .ROUTE Hydromorphone HCl 0 .STK-MED ONE 09/20 1930 DC .ROUTE Hydromorphone HCl 1 MG ONCE ONE 09/20 1914 DC 09/20 IV 09/20 Morphine Sulfate 4 MG ONCE ONE 09/20 2314 DC 09/20 IV 09/20 Morphine Sulfate 0 .STK-MED ONE 09/20 2310 DC .ROUTE Ondansetron HCl 0 .STK-MED ONE 09/20 2034 DC .ROUTE Ondansetron HCl 4 MG ONCE ONE 09/20 2029 DC 09/20 IV 09/20 Ondansetron HCl 0 .STK-MED ONE 09/20 1929 DC .ROUTE Ondansetron HCl 4 MG ONCE ONE 09/20 1914 DC 09/20 IV 09/20 Promethazine HCl 25 MG ONCE ONE 09/20 2314 DC 09/20 IV 09/20 Promethazine HCl 0 .STK-MED ONE 09/20 2310 DC .ROUTE Sodium Chloride 1,000 ML BOLUS ONE 09/20 1914 DC 09/20 IV 09/20 Sodium Chloride 1,000 ML BOLUS ONE 09/20 1914 DC 09/20 IV 09/20 Past History Medical History Neurological: NONE EENT: NONE Cardiovascular: NONE Respiratory: NONE Gastrointestinal: pancreatitis, C.DIFF COLITIS J. 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 Review of Systems Review of Systems: CHILLS, NAUSEA. ABDOMINAL PAIN. NO VOMITING. BOWEL MOVEMENTS PRESERVED. REMAINDER 12 POINTS NEG Exam & Diagnostic Data Vital Signs and I&O Vital Signs Date Time Temp Pulse Resp B/P B/P Pulse O2 O2 Flow FiO2 Mean Ox Delivery Rate 09/21 2207 98.6 90 18 118/76 98 Room Air 09/20 1840 98.3 106 18 124/92 96 Room Air Intake & Output 09/21 0800 09/21 0000 09/20 1600 09/20 0800 09/20 0000 09/19 1600 Intake Total 1000 Output Total Balance 1000 Intake, IV 1000 Patient 124 lb Weight Physical Exam: GEN; SLEEPY. SLURRING WORDS. THIN HABITUS. HEENT; ANICTERIC, PERRL, EOMI ABD; FLAT SOFT, HEALED MIDLINE SCAR. HEALING LAPAROSCOPY SCARS. TENDER AT PORT SITES. Last 24 Hours of Labs: Laboratory Tests 09/20 Chemistry Sodium (137 - 145 mmol/L) 141 Potassium (3.5 - 5.1 mmol/L) 4.3 Chloride (98 - 107 mmol/L) 107 Carbon Dioxide (22 - 30 mmol/L) 25 Anion Gap (5 - 16) 10 BUN (7 - 17 mg/dL) 10 Creatinine (0.5 - 1.0 mg/dL) 0.8 Estimated GFR (>60 ml/min) > 60 BUN/Creatinine Ratio (7 - 25 %) 12.5 Glucose (65 - 99 mg/dL) 84 Lactic Acid (0.7 - 2.1 mmol/L) Cancelled 0.8 Calcium (8.4 - 10.2 mg/dL) 8.8 Total Bilirubin (0.2 - 1.3 mg/dL) 0.5 AST (14 - 36 U/L) 23 ALT (9 - 52 U/L) 31 Alkaline Phosphatase (<127 U/L) 25 Total Protein (6.3 - 8.2 g/dL) 6.5 Albumin (3.5 - 5.0 g/dL) 3.9 Globulin (1.9 - 4.2 gm/dL) 2.6 Albumin/Globulin Ratio (1.1 - 2.2 %) 1.5 Lipase (23 - 300 U/L) 33 Total Beta HCG (NEGATIVE) NEGATIVE Hematology CBC w Diff NO MAN DIFF REQ WBC (4.8 - 10.8 /CUMM) 6.0 RBC (4.20 - 5.40 /CUMM) 4.18 L Hgb (12.0 - 16.0 G/DL) 13.6 Hct (37 - 47 %) 38.3 MCV (81.0 - 99.0 FL) 91.7 MCH (27.0 - 31.0 PG) 32.6 H MCHC (33.0 - 37.0 G/DL) 35.5 RDW (11.5 - 14.5 %) 12.6 Plt Count (130 - 400 /CUMM) 298 MPV (7.4 - 10.4 FL) 9.5 Gran % (42.2 - 75.2 %) 67.8 Lymphocytes % (20.5 - 51.1 %) 26.7 Monocytes % (1.7 - 9.3 %) 4.7 Eosinophils % (0 - 5 %) 0.7 Basophils % (0.0 - 2.0 %) 0.1 Absolute Granulocytes (1.4 - 6.5 /CUMM) 4.1 Absolute Lymphocytes (1.2 - 3.4 /CUMM) 1.6 Absolute Monocytes (0.10 - 0.60 /CUMM) 0.3 Absolute Eosinophils (0.0 - 0.7 /CUMM) 0 Absolute Basophils (0.0 - 0.2 /CUMM) 0 Imaging Results: CT SCAN FROM 09/20 AND 09/16 (8 DAYS AND 4 DAYS POST OP RESPECTIVELY). BOTH SHOW NO EVIDENCE FOR INTRAPERITONEAL INFLAMMATORY PROCESS. NO BOWEL OBSTRUCTION. GAS IN POUCH. Assessment/Plan Assessment/Plan POSTOPERATIVE ABDOMINAL PAIN. UNCLEAR ETIOLOGY. THERE IS NO GENERAL SURICAL PROCESS IN NEED FOR EMERGENT SURGICAL INTERVENTION. THERE IS NO FEVER, LEUKOCYTOSIS TO SUGGEST POSTOPERATIVE COMPLICATIONS. ALTHOUGH THE INTERPRETING RADIOLOGIST READ "REGIONAL COLONIC ILEUS", SHE HAS NO COLON. THE GAS FILLED STRUCTURE IS HER POUCH. THERE IS NO ILEUS. RECOMMEND GI, MACHINIST BRAKE(HER SURGEON) CONSULTATION. IF POUCHITIS A CONCERN, RECOMMEND COLORECTAL CONSULTATION. CALL WITH CONCERNS. Consult Acknowledgment - Thank you for your consult request.
--- NOTE | 2017-09-21 01:27 | History & Physical ---
See Addendum Lisa Olson 09/21/17 0125: General Information and HPI MD Statement: I have seen and personally examined KALANI MCKENZIE and documented this H&P. The patient is a 31 year old F who presented with a patient stated chief complaint of []. Source of Information: patient Exam Limitations: no limitations History of Present Illness: This is a 31-year-old woman with PMH significant for again for toxic megacolon which followed C. difficile colitis. The patient had an emergent abdominal total colectomy with ileostomy with J-pouch creation and removal of her appendix 10 years ago. The patient has recent history of ovarian cyst removal done on September 12. Her past medical history is also significant for an episode of unprovoked pancreatitis and kidney stones for which she was treated at [place] 4 years ago.. She presents to the ER status post oophorectomy for severe sharp pain which she grades as 10/10 in the left upper quadrant at the incision site. She also complains of an intermittent sharp pain in the right upper quadrant which has been increasing in frequency for the past 1 week. According to the patient the pain started as a dull ache in the right upper quadrant and has progressed to a stabbing sharp pain with frequency of as much as once every 15 minutes. Her pain is worsened by any kind of movement. She endorses that the pain is worse after eating. She also complains that she had a fever of 101F 3 days ago. She has been taking Motrin 200 mg twice a day long-term and Tylenol for her fever since the past 3 days. She complains of having black tarry stools since the past 2 days. She also endorses having about 10 bowel movements post her colectomy. She also complains of nausea but denies vomiting. She denies palpitations, shortness of breath, chest pain, headaches, any vaginal discharge Past History Travel History Traveled to [place] past 21 day No Medical History Neurological: NONE EENT: NONE Cardiovascular: NONE Respiratory: NONE Gastrointestinal: pancreatitis, C.DIFF COLITIS J. POUCH Hepatic: NONE Renal: NONE Musculoskeletal: NONE Psychiatric: NONE Endocrine: NONE Blood Disorders: NONE Cancer(s): NONE FIRER ELECTRIC LOCOMOTIVE/Reproductive: OVARIAN CYST History of CDIFF: Yes Active CDIFF Infection: No Surgical History Surgical History: PROCTOCOLECTOMY WITH ILEOSTOMY ILEOSTOMY REVERSAL WITH J POUCH. Past Family/Social History Psychosocial History Smoking Status: Current Everyday Smoker ETOH Use: denies use Review of Systems Review of Systems Constitutional: Reports: chills, fever. Denies: weakness, unexplained weight loss. EENTM: Reports: no symptoms. Cardiovascular: Reports: no symptoms. Denies: chest pain, palpitations. Respiratory: Reports: no symptoms. GI: Reports: abdominal pain, diarrhea, melena, nausea, changes in stool. Genitourinary: Denies: discharge, dysuria, frequency, pain. Musculoskeletal: Reports: no symptoms. Skin: Reports: no symptoms. Neurological/Psychological: Reports: anxiety, emotional problems. Hematologic/Endocrine: Reports: no symptoms. Exam & Diagnostic Data Last 24 Hrs of Vital Signs/I&O Vital Signs Date Time Temp Pulse Resp B/P B/P Pulse O2 O2 Flow FiO2 Mean Ox Delivery Rate 09/21 0330 99.4 53 18 107/69 100 09/21 0140 97.6 68 16 105/80 98 Room Air 09/20 2208 98.6 90 18 118/76 98 Room Air 09/20 1841 98.3 106 18 124/92 96 Room Air Intake & Output 09/21 0800 09/21 0000 09/20 1600 Intake Total 1000 Output Total Balance 1000 Intake, IV 1000 Patient 124 lb 124 lb Weight Physical Exam General Appearance Alert, Oriented X3, Cooperative, Severe Distress, patient is very tearful and not allowing examination Skin No Significant Lesion Skin Temp/Moisture Exam: Warm/Dry Sepsis Skin Exam (color): Normal for Ethnicity HEENT Atraumatic, PERRLA, EOMI Neck Supple Cardiovascular Regular Rate, Normal S1, Normal S2, No Murmurs Lungs Clear to Auscultation Abdomen Well healing surgical incisions s/p laproscopic ooopherectomy. The patient reports extreme tenderness even on the slightest touch. She did not allow to perform a meaningful abdomnial exmaination Neurological Normal Gait, Normal Speech, Strength at 5/5 X4 Ext, Normal Tone Extremities Normal Pulses Assessment/Plan Assessment: This is a 31 yo F with PMH of toxic colon secondary to C. difficile infection status post total colectomy and ileostomy followed by construction of a J-pouch. The patient had an oophorectomy for ovarian cysts on September 12 and presents to the ED with tach on 10 intractable abdominal pain on the incision site in the left upper quadrant with an intermittent sharp pain in the right upper quadrant. The pain radiates to the back and is worsened with movement and after meals she reports nausea. She also endorses black tarry stool since the past 2 days. On examination the patient had well healing surgical incisions on the abdomen but she did not allow meaningful abdominal examination complaining of severe pain even to the lightest of touch. Her labs are essentially normal with no leukocytosis normal LFTs and normal lipase level. She has a normal CT abdomen and pelvis. Differential diagnoses for her are gastric ulcer disease secondary to chronic Motrin use versus pancreatitis versus kidney stones versus surgical site infection. Plan We will admit the patient to the gym floor 1. Intractable Abdominal pain -Intractable abdominal pain 12/10. -Pain worse after eating with a history of melena for the past 2 days concerning for gastric ulcer secondary to chronic Motrin use -History of pancreatitis in the past; Keep the patient n.p.o for now -Stool guaiac -IV fluids -Proton pump inhibitors -IV Dilaudid/Tylenol as needed for pain control -GI consult -Follow-up with a urine tox given the patient's out of proportion endorsement of pain versus clinical findings. DVT prophylaxis CODE STATUS full code As Ranked By This Provider Problem List: 1. Diarrhea 2. Lower abdominal pain, unspecified 3. Intractable abdominal pain 4. Anxiety 5. Nausea Core Measures/Misc (11/17) Acute Coronary Syndrome ACS Diagnosis: No Congestive Heart Failure Congestive Heart Failure Diagnosis No Cerebrovascular Accident CVA/TIA Diagnosis: No VTE (View Protocol) VTE Risk Factors Estrogen Therapy No Mechanical VTE Prophylaxis d/t N/A MechProphylax Ordered No VTE Pharm Prophylaxis d/t Medical Contraindication Sepsis (View protocol) Sepsis Present: No If YES complete Sepsis Event Note If YES complete Sepsis Event Note Elva Hart 09/21/17 0417: General Information and HPI Allergies/Medications Home Med list Acetaminophen (Mapap) 325 MG TABLET 2 TAB PO TID PAIN (Reported) Ascorbic Acid (Vitamin C) (Unknown Strength) CAPSULE (Unknown Dose) PO DAILY SUPPLEMENT (Reported) Clonazepam 1 MG TABLET 1 TAB PO BID PRN anxiety (Reported) Clonazepam (Klonopin) 0.5 MG TABLET 1 TAB PO AT BEDTIME anxiety/sleep ( Reported) Gabapentin (Neurontin) 300 MG CAPSULE 1 CAP PO TID ANXIETY (Reported) Ibuprofen (Motrin Ib) 200 MG TABLET 2 TAB PO TID PAIN/INFLAMMATION (Reported) Lidocaine 4 % CREAM..G. 1 TRISTIAN TOP 4XDAILY PRN PAIN (Reported) Loperamide HCl (Imodium A-D) 2 MG TABLET 0 PO SEE ADMIN CRITERIA PRN diarrhea 1 tab after each loose stool up to 7 per day Metoclopramide HCl (Reglan) 10 MG TABLET 1 TAB PO 4 TIMES/DAY PRN n/v 30 minutes before meals and bedtime Nicotine Polacrilex (Nicotine Gum) 2 MG GUM 2 MG PO PRN SMOKING CESSATION ( Reported) Norethindrone-E.estradiol-Iron (Junel Fe 1 MG-20 Mcg Tablet) 1 MG-20 MCG (21)/75 MG (7) TABLET 1 TAB PO DAILY CONTROL (Reported) Omeprazole 40 MG CAPSULE.DR 1 CAP PO DAILY ACID REFLUX Ondansetron (Zofran Odt) 4 MG TAB.RAPDIS 1 TAB SL TID PRN nausea Core Measures/Misc (11/17) Sepsis (View protocol) If YES complete Sepsis Event Note If YES complete Sepsis Event Note Resident Review Statement Resident Statement: examined this patient, discussed with spring intern, agreed with spring intern, reviewed images Other Findings: 31-year-old woman past medical history significant for C. difficile colitis complicated by toxic megacolon status post total abdominal colectomy with ileostomy status post reversal of ileostomy with J-pouch 10 years ago, ovarian cysts status post left laparoscopic oophorectomy September [address] Almodovar, history of pancreatitis and kidney stones 4 years ago treated at [place], status post appendectomy, anxiety coming in for evaluation of right and left upper quadrant pain. Her pain is a sharp pain which is nonradiating and aggravated on movement and worse with eating. States that she has been taking Motrin 200 mg tablets 2-3 times a day since her recent surgery alternating it with Tylenol. She also endorses recent black tarry loose stools. 3 days ago she also had some chills and documented fevers of 101 at home. At baseline she usually experiences dull achy pain which is normal for her and she also experiences multiple episodes up to 10 episodes of diarrhea a day since her surgery. Vitals in ED afebrile, respiratory rate 16, heart rate 68, blood pressure 105/80. On examination she is emotionally labile, her abdomen is significant for multiple surgical scars the most recent laparoscopic scar on her left upper quadrant looks well-healed. Patient would not allow for thorough examination, even for light touch with the stethoscope as she claimed to be in significant amount of pain. Labs BEP/CBCs unremarkable. CT abdomen pelvis not significant for bowel obstruction, decreased free air in abdomen improved from previous imaging, postsurgical changes present. Problem list Abdominal pain- Anxiety Plan: Admit to general medicine floor, vitals per protocol Abdominal pain, worse on eating with dark stools, in the setting of daily Motrin use concerning for gastric ulcer, low suspicion for pancreatitis as amylase is not elevated, low suspicion for gallstones at this time as well as no elevated T bili, no inflammatory changes seen on CT abdomen and pelvis. We will keep her n.p.o. she is currently experiencing nausea and severe pain. Gentle IV fluids IV PPI Guaiac stools GI consult placed Consider CUSTOMER SUCCESS REPRESENTATIVE consult Pain control with Tylenol, IV Dilaudid CTPMP checked: Patient is a total of 49 prescriptions with 9 prescribers and 7 pharmacies she has been prescribed Percocet, tramadol and also been on medical marijuana which she denied during interview. We will continue with her home dose of clonazepam 1 mg twice daily as needed as needed, and 0.5 mg at bedtime. 1 mg Dilaudid every 6 for severe pain. Follow-up U tox DVT prophylaxis Flora Full bettina Polanco MDGotha 09/21/17 0749: General Information and HPI Statement: I have seen and personally examined KALANI MCKENZIE and documented this H&P. The patient is a 31 year old F who presented with a patient stated chief complaint of [abdominal pain]. Source of Information: patient Exam Limitations: clinical condition Allergies/Medications Allergies: Coded Allergies: Sulfa (Sulfonamide Antibiotics) (Severe, HIVES, FLU LIKE SYMPTOMS 09/20/17) metronidazole (From FLAGYL) (Severe, N/V/D 08/31/17) Past History Medical History Gastrointestinal: pancreatitis, C.DIFF COLITIS J. POUCH Surgical History Surgical History: PROCTOCOLECTOMY WITH ILEOSTOMY ILEOSTOMY REVERSAL WITH J POUCH., oophorectomy Past Family/Social History Psychosocial History Smoking Status: Current Everyday Smoker ETOH Use: denies use Illicit Drug Use: marijuana Review of Systems Review of Systems Constitutional: Reports: see HPI. Exam & Diagnostic Data Last 24 Hrs of Vital Signs/I&O Vital Signs Date Time Temp Pulse Resp B/P B/P Pulse O2 O2 Flow FiO2 Mean Ox Delivery Rate 09/21 0709 97.8 73 18 106/75 98 09/21 0330 99.4 53 18 107/69 100 09/21 0140 97.6 68 16 105/80 98 Room Air 09/20 2208 98.6 90 18 118/76 98 Room Air 09/20 1841 98.3 106 18 124/92 96 Room Air Intake & Output 09/21 0800 09/21 0000 09/20 1600 Intake Total 150 1000 Output Total Balance 150 1000 Intake, IV 150 1000 Patient 124 lb 124 lb Weight Physical Exam General Appearance Alert, Oriented X3, Cooperative, Mild Distress Skin No Rashes, No Breakdown Skin Temp/Moisture Exam: Warm/Dry Sepsis Skin Exam (color): Normal for Ethnicity HEENT Atraumatic, PERRLA, EOMI Neck Supple Lymphatic Axillary nl, Cervical nl Cardiovascular Regular Rate, Normal S1, Normal S2 Lungs Clear to Auscultation, Normal Air Movement Abdomen Normal Bowel Sounds, Well healing surgical incisions s/p laproscopic ooopherectomy. The patient reports extreme tenderness even on the slightest touch. She did not allow to perform a meaningful abdomnial exmaination, claims severe tenderness not noted on physical exam Neurological Normal Speech Extremities No Clubbing, No Cyanosis Sepsis Peripheral Pulse Location: Dorsalis Pedis Sepsis Peripheral Pulse Exam: Normal Sepsis Cap Refill Exam: <2 Sec Last 24 Hrs of Labs/Jon: Laboratory Tests 09/20/172209: Lactic Acid Cancelled 09/20/17 2030: Anion Gap 10, Estimated GFR > 60, BUN/Creatinine Ratio 12.5, Glucose 84, Lactic Acid 0.8, Calcium 8.8, Total Bilirubin 0.5, AST 23, ALT 31, Alkaline Phosphatase 25, Total Protein 6.5, Albumin 3.9, Globulin 2.6, Albumin/Globulin Ratio 1.5, Lipase 33, Total Beta HCG NEGATIVE 09/20/171923: CBC w Diff NO MAN DIFF REQ, RBC 4.18 L, MCV 91.7, MCH 32.6 H, MCHC 35.5, RDW 12.6, MPV 9.5, Gran % 67.8, Lymphocytes % 26.7, Monocytes % 4.7, Eosinophils % 0.7, Basophils % 0.1, Absolute Granulocytes 4.1, Absolute Lymphocytes 1.6, Absolute Monocytes 0.3, Absolute Eosinophils 0, Absolute Basophils 0 Microbiology 09/20 2029 BLOOD: Blood Culture - RECD 09/21 1923 BLOOD: Blood Culture - RECD Core Measures/Misc (11/17) Sepsis (View protocol) If YES complete Sepsis Event Note If YES complete Sepsis Event Note Attending MD Review Statement Attending Statement Attending MD Statement: examined this patient, discuss w/resident/PA/TRANSITION TEACHER, agreed w/resident/PA/TRANSITION TEACHER, amended to note Attending Assessment/Plan: This patient is a 31-year-old white female with a significant past medical history for C. difficile colitis complicated by toxic megacolon status post total abdominal colectomy with ileostomy status post reversal of ileostomy with J-pouch 10 years ago, ovarian cysts status post left laparoscopic oophorectomy [address] Almodovar, history of pancreatitis and kidney stones 4 years ago treated at [place], status post appendectomy, anxiety coming in for evaluation of right and left upper quadrant pain. Her pain is a sharp pain which is nonradiating and aggravated on movement and worse with eating. States that she has been taking Motrin 200 mg tablets 2-3 times a day since her recent surgery alternating it with Tylenol. She also endorses recent black tarry loose stools. 3 days ago she also had some chills and documented fevers of 101 at home. At baseline she usually experiences dull achy pain which is normal for her and she also experiences multiple episodes up to 10 episodes of diarrhea a day since her surgery. Upon evaluation in the ED she was found to be afebrile, her abdomen is significant for multiple surgical scars the most recent laparoscopic scar on her left upper quadrant looks well-healed. Labs BEP/CBCs unremarkable. CT abdomen pelvis not significant for bowel obstruction, decreased free air in abdomen improved from previous imaging, postsurgical changes present. Will keep her n.p.o. she is currently experiencing nausea and severe pain. GI consult placed. May want ot let Dr. Almodovar know she was admitted. CUSTOMER SUCCESS REPRESENTATIVE consult. Pain control with Tylenol, IV Dilaudid. CTPMP checked: Patient is a total of 49 prescriptions with 9 prescribers and 7 pharmacies she has been prescribed Percocet, tramadol and also been on medical marijuana which she denied. U tox pending.
[2017-09-21 03:30] VITALS: BP 107/69
[2017-09-21 07:09] VITALS: BP 106/75
--- NOTE | 2017-09-21 10:03 | PN- Housestaff ---
See Addendum Subjective Follow-up For: black stools and abdominal pain Complaints: pain scale (0-10), abdominal pain Subjective: Patient reports she has been taking Motrin 1200mg/day for two weeks straight. Her most recent endoscopy was done by Dr. White (her previous GI specialist; currently with Dr. Smith) on July 04, 2017. She recalls hearing him use the term 'J pouch erosion' at that time. She most recently had a left ovarian cyst removed by Dr. Almodovar on September 12. She reports continued abdominal pain and two day h/o black stools. Denies iron supplementation or multivitamin use. At home she states she had a fever of 101 and chills. She is nauseated this morning and has abdominal pain. She denies fever currently, chills, v/d, chest pain, SOB. Review of Systems Constitutional: Reports: see HPI. Objective Last 24 Hrs of Vital Signs/I&O Vital Signs Date Time Temp Pulse Resp B/P B/P Pulse O2 O2 Flow FiO2 Mean Ox Delivery Rate 09/21 0709 97.8 73 18 106/75 98 09/21 0330 99.4 53 18 107/69 100 09/21 0140 97.6 68 16 105/80 98 Room Air 09/20 2208 98.6 90 18 118/76 98 Room Air 09/20 1841 98.3 106 18 124/92 96 Room Air Intake & Output 09/21 1600 09/21 0800 09/21 0000 Intake Total 150 1000 Output Total Balance 150 1000 Intake, IV 150 1000 Patient 124 lb 124 lb Weight Physical Exam General Appearance: Alert, Oriented X3, Cooperative, Mild Distress Skin: No Rashes Skin Temp/Moisture Exam: Warm/Dry HEENT: Atraumatic, PERRLA Neck: Supple Cardiovascular: Regular Rate, Normal S1, Normal S2 Lungs: Clear to Auscultation Abdomen: Normal Bowel Sounds, Soft, previous surgical scars healed (previous ileostomy site; midline incision) and healing (laparoscopic scars). No surrounding erythema or signs of infection. Tender to palpation diffusely. Extremities: No Edema, Normal Pulses Assessment/Plan Assessment: 31 yo F with PMH of toxic colon secondary to C. difficile infection status post sub total colectomy with ileostomy and reversal with construction of a J-pouch 2008. PMH includes pancreatitis as well. with unclear etiology. The patient had left ovarian cyst removed on September 12 and presents to the ED with 10/10 intractable abdominal pain diffuse. The pain radiates to the back and is worsened with movement and after meals. She has associated nausea. She also endorses black tarry stool since the past 2 days. Her labs are essentially normal with no leukocytosis normal LFTs and normal lipase level. She has a normal CT abdomen and pelvis. She was admitted to the gen medicine service for further work up for the following: Problem List: 1. Abdominal pain 2. Black stools Differential diagnoses for her are gastric ulcer disease secondary to chronic Motrin use versus pancreatitis versus kidney stones versus surgical site infection. # Abdominal pain -IV fluids NS @75cc/hr -IV Morphine 2mg Q4hr and tylenol -Follow-up with a urine tox given the patient's out of proportion endorsement of pain versus clinical findings. -Lipase WNL -CT abd/pelv negative for renal stones or other pathology #Black stools -No NSAIDS -GI consulted for possible endoscopy; rule out GI bleed; continue NPO -guiac negative this morning; performed by nursing staff -PPI -H/H:13.6/38.3 stable -No leukocytosis DVT prophylaxis: lovenox/ALPS/ambulation CODE STATUS full code Problem List: 1. Abdominal pain Pain Ratin Pain Location: abdomen Pain Goal: Pain 4 or less Pain Plan: see a/p Tomorrow's Labs & Rationales: none
--- NOTE | 2017-09-21 12:46 | Cons- OBGYN ---
General Information and HPI Consulting Request Date of Consult: 09/21/17 Requested By: Marshall Polanco MD Reason for Consult: post-op pain History of Present Illness: This patient is a 31-year-old 0 white female LMP 09/15/2017 who is status post left laparoscopic ovarian cystectomy with lysis of adhesions on 09/12/2017 who was admitted today from the emergency room for increased abdominal pain. The patient saw Dr. Almodovar last and was assured that she was recovering well. Patient states that the pain worsened over the past 48 hours mostly left and upper right quadrant; she denies fever nausea or vomiting or diarrhea, however she complains of black tarry stools. Her white blood cell count is 6000 and her H&H is 13 and 34. She is currently afebrile with normal vital signs. CAT scan of pelvis and abdomen were normal and general surgical consult concurs that she is in no need of reoperation at this time. She currently appears comfortable however she is asking for more pain medication and complains of a migraine headache now. She is also hungry and asking for food. She has a past medical history significant for colectomy and J-pouch and several episodes of pouchitis per surgery, pancreatitis and C. difficile infection. Allergies/Medications Allergies: Coded Allergies: Sulfa (Sulfonamide Antibiotics) (Severe, HIVES, FLU LIKE SYMPTOMS 09/20/17) metronidazole (From FLAGYL) (Severe, N/V/D 08/31/17) Home Med List: Acetaminophen (Mapap) 325 MG TABLET 2 TAB PO TID PAIN (Reported) Ascorbic Acid (Vitamin C) (Unknown Strength) CAPSULE (Unknown Dose) PO DAILY SUPPLEMENT (Reported) Clonazepam 1 MG TABLET 1 TAB PO BID PRN anxiety (Reported) Clonazepam (Klonopin) 0.5 MG TABLET 1 TAB PO AT BEDTIME anxiety/sleep ( Reported) Gabapentin (Neurontin) 300 MG CAPSULE 1 CAP PO TID ANXIETY (Reported) Ibuprofen (Motrin Ib) 200 MG TABLET 2 TAB PO TID PAIN/INFLAMMATION (Reported) Lidocaine 4 % CREAM..G. 1 TRISTIAN TOP 4XDAILY PRN PAIN (Reported) Loperamide HCl (Imodium A-D) 2 MG TABLET 0 PO SEE ADMIN CRITERIA PRN diarrhea 1 tab after each loose stool up to 7 per day Metoclopramide HCl (Reglan) 10 MG TABLET 1 TAB PO 4 TIMES/DAY PRN n/v 30 minutes before meals and bedtime Nicotine Polacrilex (Nicotine Gum) 2 MG GUM 2 MG PO PRN SMOKING CESSATION ( Reported) Norethindrone-E.estradiol-Iron (Junel Fe 1 MG-20 Mcg Tablet) 1 MG-20 MCG (21)/75 MG (7) TABLET 1 TAB PO DAILY CONTROL (Reported) Omeprazole 40 MG CAPSULE.DR 1 CAP PO DAILY ACID REFLUX Ondansetron (Zofran Odt) 4 MG TAB.RAPDIS 1 TAB SL TID PRN nausea Past History Medical History Blood Transfusion Hx: Yes Neurological: NONE EENT: NONE Cardiovascular: NONE Respiratory: NONE Gastrointestinal: pancreatitis, C.DIFF COLITIS J. POUCH Hepatic: NONE Renal: NONE Musculoskeletal: NONE Psychiatric: NONE Endocrine: NONE Blood Disorders: NONE Cancer(s): NONE RECRUITING INTERNSHIP/Reproductive: OVARIAN CYST Surgical History Pertinent Surgical History: PROCTOCOLECTOMY WITH ILEOSTOMY ILEOSTOMY REVERSAL WITH J POUCH. oophorectomy Psychosocial History Smoking Status: Current Everyday Smoker ETOH Use: denies use Illicit Drug Use: marijuana Review of Systems Review of Systems Constitutional: Reports: see HPI. EENTM: Reports: blurred vision. Cardiovascular: Reports: no symptoms. Respiratory: Reports: no symptoms. GI: Reports: abdominal pain, melena, changes in stool. Denies: vomiting. Genitourinary: Reports: no symptoms. Musculoskeletal: Reports: no symptoms. Skin: Reports: no symptoms. Neurological/Psychological: Reports: see HPI. Hematologic/Endocrine: Reports: no symptoms. Immunologic/Allergic: Reports: no symptoms. All Other Systems: Reviewed and Negative Exam & Diagnostic Data Vital Signs and I&O Vital Signs Date Time Temp Pulse Resp B/P B/P Pulse O2 O2 Flow FiO2 Mean Ox Delivery Rate 09/21 0709 97.8 73 18 106/75 98 09/21 0330 99.4 53 18 107/69 100 09/21 0140 97.6 68 16 105/80 98 Room Air 09/20 2208 98.6 90 18 118/76 98 Room Air 09/20 1841 98.3 106 18 124/92 96 Room Air Intake & Output 09/21 1600 09/21 0800 09/21 0000 09/20 1600 09/20 0800 09/20 0000 Intake Total 150 1000 Output Total Balance 150 1000 Intake, IV 150 1000 Patient 124 lb 124 lb Weight Physical Exam: The patient is lying comfortably in bed alert and awake with somewhat slurred speech complains of migraine headache and hunger Abdomen: Nondistended, nontender to deep palpation with stethoscope while auscultating present bowel sounds in all 4 quadrants; incisions healing well with no erythema, all clean dry and intact Chest: Clear to auscultation respiratory effort normal Pelvic: Deferred Extremities: Nontender no clubbing cyanosis or edema Assessment/Plan Assessment/Plan Postop abdominal pain status post laparoscopic left cystectomy 2 weeks ago She is afebrile with a normal white blood cell count Her CAT scan of pelvis and abdomen are normal, no evidence of peritonitis, obstruction or ileus Plan: Continued observation is warranted; awaiting GI consult I agree with general surgery that there is no need to intervene surgically at this point I am not familiar with this patient more than today's visit; however I believe that there may be a component of drug-seeking behavior Dr. Almodovar to continue RE[employer] follow-up tomorrow Thank you for this consult Problem List: 1. Abdominal pain Consult Acknowledgment - Thank you for your consult request.
[2017-09-21 14:39] VITALS: BP 115/68
--- NOTE | 2017-09-21 15:18 | Cons- Gastroenterology ---
General Information and HPI Consulting Request Date of Consult: 09/21/17 Requested By: Marshall Polanco MD Reason for Consult: Abdominal pain, nausea Allergies/Medications Allergies: Coded Allergies: Sulfa (Sulfonamide Antibiotics) (Severe, HIVES, FLU LIKE SYMPTOMS 09/20/17) metronidazole (From FLAGYL) (Severe, N/V/D 08/31/17) Home Med List: Acetaminophen (Mapap) 325 MG TABLET 2 TAB PO TID PAIN (Reported) Ascorbic Acid (Vitamin C) (Unknown Strength) CAPSULE (Unknown Dose) PO DAILY SUPPLEMENT (Reported) Clonazepam 1 MG TABLET 1 TAB PO BID PRN anxiety (Reported) Clonazepam (Klonopin) 0.5 MG TABLET 1 TAB PO AT BEDTIME anxiety/sleep ( Reported) Gabapentin (Neurontin) 300 MG CAPSULE 1 CAP PO TID ANXIETY (Reported) Ibuprofen (Motrin Ib) 200 MG TABLET 2 TAB PO TID PAIN/INFLAMMATION (Reported) Lidocaine 4 % CREAM..G. 1 TRISTIAN TOP 4XDAILY PRN PAIN (Reported) Loperamide HCl (Imodium A-D) 2 MG TABLET 0 PO SEE ADMIN CRITERIA PRN diarrhea 1 tab after each loose stool up to 7 per day Metoclopramide HCl (Reglan) 10 MG TABLET 1 TAB PO 4 TIMES/DAY PRN n/v 30 minutes before meals and bedtime Nicotine Polacrilex (Nicotine Gum) 2 MG GUM 2 MG PO PRN SMOKING CESSATION ( Reported) Norethindrone-E.estradiol-Iron (Junel Fe 1 MG-20 Mcg Tablet) 1 MG-20 MCG (21)/75 MG (7) TABLET 1 TAB PO DAILY CONTROL (Reported) Omeprazole 40 MG CAPSULE.DR 1 CAP PO DAILY ACID REFLUX Ondansetron (Zofran Odt) 4 MG TAB.RAPDIS 1 TAB SL TID PRN nausea Current Medications: Current Medications Sig/Radha Start time Last Medication Dose Route Stop Time Status Admin Acetaminophen 1,000 MG ONCE ONE 09/21 1245 DC 09/21 N/A 1 UNIT IV 09/21 1259 1239 Acetaminophen 650 MG Q6P PRN 09/21 0400 AC PO Clonazepam 0.5 MG AT BEDTIME 09/21 2100 AC PO 09/28 205 Clonazepam 1 MG BID PRN 09/21 0430 AC PO 09/28 0429 Gabapentin 300 MG TID 09/21 0900 AC 09/21 PO 1440 Hydromorphone HCl 1 MG Q6 09/21 0400 DC 09/21 IV 0413 Hydromorphone HCl 1 MG ONCE ONE 09/20 2044 DC 09/20 IV 09/20 Hydromorphone HCl 0 .STK-MED ONE 09/20 2042 DC .ROUTE Hydromorphone HCl 0 .STK-MED ONE 09/20 1930 DC .ROUTE Hydromorphone HCl 1 MG ONCE ONE 09/20 1914 DC 09/20 IV 09/20 Morphine Sulfate 2 MG Q4P PRN 09/21 1000 AC 09/21 IV 1440 Morphine Sulfate 4 MG ONCE ONE 09/20 2314 DC 09/20 IV 09/20 Morphine Sulfate 0 .STK-MED ONE 09/20 2310 DC .ROUTE Nicotine 14 MG DAILY 09/21 0700 AC 09/21 TOP 0800 Ondansetron HCl 4 MG Q6P PRN 09/21 0400 AC 09/21 IV 0413 Ondansetron HCl 0 .STK-MED ONE 09/20 2034 DC .ROUTE Ondansetron HCl 4 MG ONCE ONE 09/20 2029 DC 09/20 IV 09/20 Ondansetron HCl 0 .STK-MED ONE 09/20 1929 DC .ROUTE Ondansetron HCl 4 MG ONCE ONE 09/20 1914 DC 09/20 IV 09/20 Pantoprazole Sodium 40 MG DAILY 09/21 0900 AC 09/21 IV 0848 Potassium Chloride 40 MEQ .Q10H 09/21 0400 CAN Dextrose/Water 1,000 ML IV Promethazine HCl 25 MG ONCE ONE 09/20 2314 DC 09/20 IV 09/20 Promethazine HCl 0 .STK-MED ONE 09/20 2310 DC .ROUTE Sodium Chloride 1,000 ML .[id number] 09/21 0345 AC 09/21 IV 0414 Sodium Chloride 1,000 ML BOLUS ONE 09/20 1914 DC 09/20 IV 09/20 Sodium Chloride 1,000 ML BOLUS ONE 09/20 1914 DC 09/20 IV 09/20 Past History Travel History Traveled to [place] past 21 day No Medical History Blood Transfusion Hx: Yes Neurological: NONE EENT: NONE Cardiovascular: NONE Respiratory: NONE Gastrointestinal: pancreatitis, C.DIFF COLITIS J. 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 oophorectomy Psychosocial History Smoking Status: Current Everyday Smoker ETOH Use: denies use Illicit Drug Use: marijuana Exam & Diagnostic Data Vital Signs and I&O Vital Signs Date Time Temp Pulse Resp B/P B/P Pulse O2 O2 Flow FiO2 Mean Ox Delivery Rate 09/21 1439 98.3 72 18 115/68 100 Room Air 09/21 0709 97.8 73 18 106/75 98 09/21 0330 99.4 53 18 107/69 100 09/21 0140 97.6 68 16 105/80 98 Room Air 09/20 2208 98.6 90 18 118/76 98 Room Air 09/20 1841 98.3 106 18 124/92 96 Room Air Intake & Output 09/21 1600 09/21 0400 09/20 1600 09/20 0400 09/19 1600 09/19 0400 Intake Total 725 1000 Output Total 400 Balance 325 1000 Intake, IV 725 1000 Number 2 Bowel Movements Output, Urine 400 Patient 124 lb Weight Results Pertinent Lab Results: Laboratory Tests 09/21 09/20 09/20 0800 2209 2029 Chemistry Sodium (137 - 145 mmol/L) 141 Potassium (3.5 - 5.1 mmol/L) 4.3 Chloride (98 - 107 mmol/L) 107 Carbon Dioxide (22 - 30 mmol/L) 25 Anion Gap (5 - 16) 10 BUN (7 - 17 mg/dL) 10 Creatinine (0.5 - 1.0 mg/dL) 0.8 Estimated GFR (>60 ml/min) > 60 BUN/Creatinine Ratio (7 - 25 %) 12.5 Glucose (65 - 99 mg/dL) 84 Lactic Acid (0.7 - 2.1 mmol/L) Cancelled 0.8 Calcium (8.4 - 10.2 mg/dL) 8.8 Total Bilirubin (0.2 - 1.3 mg/dL) 0.5 AST (14 - 36 U/L) 23 ALT (9 - 52 U/L) 31 Alkaline Phosphatase (<127 U/L) 25 Total Protein (6.3 - 8.2 g/dL) 6.5 Albumin (3.5 - 5.0 g/dL) 3.9 Globulin (1.9 - 4.2 gm/dL) 2.6 Albumin/Globulin Ratio (1.1 - 2.2 %) 1.5 Lipase (23 - 300 U/L) 33 Total Beta HCG (NEGATIVE) NEGATIVE Toxicology Urine Opiates Screen (>2000 NG/ML) 2197.00 H Methadone Screen (>300 NG/ML) 43 Barbiturate Screen (>200 NG/ML) < 60 Ur Phencyclidine Scrn (>25 NG/ML) < 6.00 Amphetamines Screen (>1000 NG/ML) < 100 U Benzodiazepines Scrn (>200 NG/ML) 121 Urine Cocaine Screen (>300 NG/ML) < 50 Urine Cannabis Screen (>50 NG/ML) < 5.00 09/204 Hematology CBC w Diff NO MAN DIFF REQ WBC (4.8 - 10.8 /CUMM) 6.0 RBC (4.20 - 5.40 /CUMM) 4.18 L Hgb (12.0 - 16.0 G/DL) 13.6 Hct (37 - 47 %) 38.3 MCV (81.0 - 99.0 FL) 91.7 MCH (27.0 - 31.0 PG) 32.6 H MCHC (33.0 - 37.0 G/DL) 35.5 RDW (11.5 - 14.5 %) 12.6 Plt Count (130 - 400 /CUMM) 298 MPV (7.4 - 10.4 FL) 9.5 Gran % (42.2 - 75.2 %) 67.8 Lymphocytes % (20.5 - 51.1 %) 26.7 Monocytes % (1.7 - 9.3 %) 4.7 Eosinophils % (0 - 5 %) 0.7 Basophils % (0.0 - 2.0 %) 0.1 Absolute Granulocytes (1.4 - 6.5 /CUMM) 4.1 Absolute Lymphocytes (1.2 - 3.4 /CUMM) 1.6 Absolute Monocytes (0.10 - 0.60 /CUMM) 0.3 Absolute Eosinophils (0.0 - 0.7 /CUMM) 0 Absolute Basophils (0.0 - 0.2 /CUMM) 0 Imaging/Other Studies: CT scan (September 20) without significant abnormality Ultrasound (August 31) without gallstones or biliary abnormality Assessment/Plan Assessment/Recommendations: The patient presents with 2-3 days of acute upper abdominal pain, nausea, vomiting, chills, change in defecation and urination, and black stool. Her past history is a bit cloudy. 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 She has chronic/recurrent abdominal pain which is usually lower abdomen. She has had several episodes of pouchitis, manifested by frequency and cramps. She recently underwent left ovarian cystectomy with lysis of abdominal/pelvic adhesions (following several emergency room visits for pain) , which she states may have improved her lower abdominal pain, and she is in the immediate postoperative period for this. She claims that this upper abdominal pain is entirely new, although it was the trigger for an emergency room visit in August 31, and was accompanied by a normal upper abdominal ultrasound. She also states that her black stool is new, but there is a mention of question of melena in a [facility] note from July, leading to an EGD which was essentially normal (an EGD in 2013 demonstrated gastritis, negative for Helicobacter pylori) . She had a concurrent proctoscopy/ileoscopy, which was normal aside from a single ileal erosion. 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
[2017-09-21 22:45] VITALS: BP 114/68
[2017-09-22 06:05] VITALS: BP 108/72
[2017-09-22 07:55] LABS: ABSOLUTE BASOPHIL COUNT 0.1 /CUMM (0.0-0.2); ABSOLUTE EOSINOPHIL COUNT 0.1 /CUMM (0.0-0.7); ABSOLUTE GRANULOCYTE CT 1.5 /CUMM (1.4-6.5); ABSOLUTE LYMPH COUNT 1.7 /CUMM (1.2-3.4); ABSOLUTE MONOCYTE COUNT 0.3 /CUMM (0.10-0.60); BASOPHIL % 1.4 % (0.0-2.0); EOSINOPHIL % 2.4 % (0-5); GRANULOCYTE % 41.4 % (42.2-75.2); MEAN CORPUSCULAR HGB 31.6 PG (27.0-31.0); MEAN CORPUSCULAR HGB CONC 33.6 G/DL (33.0-37.0); MEAN CORPUSCULAR VOLUME 93.8 FL (81.0-99.0); MEAN PLATELET VOLUME 9.4 FL (7.4-10.4); PLATELET COUNT 230 /CUMM (130-400); RBC DISTRIBUTION WIDTH 12.3 % (11.5-14.5); RED BLOOD CELL CT 3.44 /CUMM (4.20-5.40); WHITE BLOOD CELL COUNT 3.6 /CUMM (4.8-10.8)
--- NOTE | 2017-09-22 08:03 | PN- Housestaff ---
See Addendum Subjective Follow-up For: black stools abdominal pain Complaints: no complaints Subjective: Patient states she is feeling much better. Nausea has subsided and abdominal pain is significantly improved. Denies fever, chills, n/v/d, chest pain, SOB. She is eager to go home Review of Systems Constitutional: Reports: see HPI. Objective Last 24 Hrs of Vital Signs/I&O Vital Signs Date Time Temp Pulse Resp B/P B/P Pulse O2 O2 Flow FiO2 Mean Ox Delivery Rate 09/22 0605 97.8 74 18 108/72 99 09/21 2245 98.2 77 18 114/68 100 Room Air 09/21 1439 98.3 72 18 115/68 100 Room Air Intake & Output 09/22 1600 09/22 0800 09/22 0000 Intake Total 950 540 Output Total 900 1000 500 Balance -900 -50 40 Intake, IV 650 300 Intake, Oral 300 240 Number 1 Bowel Movements Output, Urine 900 1000 500 Physical Exam General Appearance: Alert, Oriented X3, Cooperative, No Acute Distress Skin: No Rashes Skin Temp/Moisture Exam: Warm/Dry HEENT: Atraumatic, PERRLA Neck: Supple Cardiovascular: Regular Rate, Normal S1, Normal S2, No Murmurs Lungs: Clear to Auscultation Abdomen: Normal Bowel Sounds, Soft, No Tenderness, all past surgical scars healed or healing without signs of infection Extremities: No Edema, Normal Pulses Assessment/Plan Assessment: 31 yo F with PMH of toxic colon secondary to C. difficile infection status post sub total colectomy with ileostomy and reversal with construction of a J-pouch 2008. PMH includes pancreatitis as well. with unclear etiology. The patient had left ovarian cyst removed on September 12 and presents to the ED with 10/10 intractable abdominal pain diffuse. The pain radiates to the back and is worsened with movement and after meals. She has associated nausea. She also endorses black tarry stool since the past 2 days. Her labs are essentially normal with no leukocytosis normal LFTs and normal lipase level. She has a normal CT abdomen and pelvis. She was admitted to the gen medicine service for further work up for the following: Problem List: 1. Abdominal pain 2. Black stools Differential diagnoses for her are gastric ulcer disease secondary to chronic Motrin use versus pancreatitis versus kidney stones versus surgical site infection. # Abdominal pain -DC all narcotics as not necessary and patient with history of multiple providers prescribing narcotics -Follow-up with a urine tox given the patient's out of proportion endorsement of pain versus clinical findings. -Lipase WNL -CT abd/pelv negative for renal stones or other pathology #Black stools -No NSAIDS -GI consulted: donnatol started; PPI; sulcrafate; advancing diet -guiac -Hgb 10.9 this morning; likely dilutional as all cell lines decreased and patient been on IVF -No leukocytosis -Will need follow up as an outpatient with GI: patient already has this in place. DVT prophylaxis: lovenox/ALPS/ambulation CODE STATUS full code Dispo: likely dispo today; pending GI input Problem List: 1. Abdominal pain Pain Ratin Pain Location: none Pain Goal: Remain pain free Pain Plan: see a/p Tomorrow's Labs & Rationales: none
[2017-09-22 08:30] LABS: HEMATOCRIT 32.3 % (37-47)
[2017-09-22] MEDS ORDERED: DONNATAL TABL16.2 MG PO (10:22)
--- NOTE | 2017-09-22 10:25 | Patient Discharge Instructions ---
Discharge Instructions General Discharge Information You were seen/treated for: black stools and abdominal pain You had these procedures: none Watch for these problems: fever, chills, nausea, vomiting, abdominal pain, chest pain, shortness of breath Special Instructions: Follow up with GI doctor as planned outpatient. Follow up with your primary care doctor. Take as medications as prescribed and resume home medications. Diet Continue normal diet: Yes Recommended Diet: Regular Activity Full Activity/No Limits: Yes Acute Coronary Syndrome Inclusion Criteria At DC or during hospital stay patient has or had the following: ACS DIAGNOSIS No Discharge Core Measures Meds if any: Prescribed or Continued at Discharge Meds if any: NOT Prescribed or Continued at Discharge Congestive Heart Failure Inclusion Criteria At DC or during hospital stay patient has or had the following: CHF DIAGNOSIS No Discharge Core Measures Meds if any: Prescribed or Continued at Discharge Meds if any: NOT Prescribed or Continued at Discharge Cerebrovascular accident Inclusion Criteria At DC or during hospital stay patient has or had the following: CVA/TIA Diagnosis No Discharge Core Measures Meds if any: Prescribed or Continued at Discharge Meds if any: NOT Prescribed or Continued at Discharge Venous thromboembolism Inclusion Criteria VTE Diagnosis No VTE Type NONE VTE Confirmed by (Test) NONE Discharge Core Measures - Per Current guidelines, there needs to be overlap - treatment for the first 5 days of Warfarin therapy. - If discharged on Warfarin prior to 5 days of - overlap therapy, the patient will need to be - assessed for post discharge needs including - *Post discharge parental anticoagulation - *Warfarin and/or parental anticoagulation education - *Follow up date to check INR post discharge At least 5 days overlap therapy as Inpatient No Meds if any: Prescribed or Continued at Discharge Note: Overlap Therapy is Warfarin and Anticoagulant Meds if any: NOT Prescribed or Continued at Discharge
--- NOTE | 2017-09-22 10:51 | PN- OBGYN ---
Surgical Brief Attending Note Brief Attending Note: I was alerted by Dr Worthy that my patient was readmitted. Appreciate his consultation and Dr Mckinley's as well. I reviewed the note by Dr Contreras from and I met with the covering team today. Of note I did receive a note from the patient via the portal on 09/20/17 requesting more pain medication but that the motrin and tylenol combination was helping her. Seen today and patient was free of pain. I discussed with team that she may need to be seen in the outpatient setting for pain mgmt issues as there is a potential that she is drug seeking. I only prescribed nsaids and tylenol for her surgery as she did have narcotics given to her from the ED. In addition I recommended topical lidocaine as well.
--- NOTE | 2017-09-22 13:49 | Discharge Summary ---
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 PMH includes pancreatitis as well with unclear etiology. The patient had left ovarian cyst removed on September 12 and presents to the ED with 10/10 intractable abdominal pain diffuse. The pain radiates to the back and is worsened with movement and after meals. She has associated nausea. She also endorses black tarry stool since the past 2 days. Her labs are essentially normal with no leukocytosis normal LFTs and normal lipase level. She has a normal CT abdomen and pelvis. She was placed on observation on the gen medicine service for further work up for the following: Problem List: 1. Abdominal pain 2. Black stools Admission Data: VS T98.3 P106 RR18 BP124/92 Sat 96%RA WBC 6.0, Hgb13.6, utox positive for opiates CT abd/pelv: negative for any pathology Differential diagnoses for her included gastric ulcer disease secondary to chronic Motrin use versus pancreatitis versus kidney stones versus surgical site infection. # Abdominal pain-managed with non narcotic and initially narcotic medication. CT abd/pelv negative for renal stones or other pathology. #Black stools were managed off NSAIDS and stools were guiac negative. Her hemoglobin was stable. GI was consulted and recommended donnatol; PPI; sulcrafate; advancing diet. She tolerated the advancement of diet well and her symptoms resolved on September 22, 2017. She will need follow up as an outpatient with GI: patient already has this in place. Patient was discharged with stable VS, tolerating a regular diet, and symptom free on September 22, 2017. She was instructed to follow up with her PCP as well as GI with whom she already has an appointment. Allergies: Coded Allergies: Sulfa (Sulfonamide Antibiotics) (Severe, HIVES, FLU LIKE SYMPTOMS 09/20/17) metronidazole (From FLAGYL) (Severe, N/V/D 08/31/17) Disposition Summary Disposition Principal Diagnosis: gastritis Additional Diagnosis: functional pain Discharge Disposition: home or self care Discharge Instructions General Discharge Information Code Status: Full Code Patient's Diet: regular Patient's Activity: as tolerated Follow-Up Instructions/Appts: Please work on smoking cessation as discussed Follow up with your PCP and GI specialist Take all medications as prescribed Medications at Discharge Discharge Medications: Stop taking the following medications: Clonazepam (Klonopin) 0.5 MG TABLET ORAL AT BEDTIME Qty = 30 Ibuprofen (Motrin Ib) 200 MG TABLET ORAL THREE TIMES DAILY Continue taking these medications: Omeprazole (Omeprazole) 40 MG CAPSULE.DR 1 Capsule ORAL DAILY Qty = 30 Comments: IV PROTONIX GIVEN Last Taken: 09/22/17 Time: 0830 AM Clonazepam (Clonazepam) 1 MG TABLET 1 Tablet ORAL TWICE DAILY as needed for anxiety Qty = 60 Comments: Last Taken: 09/22/17 Time: 0830 AM Norethindrone-E.estradiol-Iron (Junel Fe 1 MG-20 Mcg Tablet) 1 MG-20 MCG (21)/75 MG (7) TABLET 1 Tablet ORAL DAILY Qty = 28 Comments: NOT GIVEN IN HOSPITAL Nicotine Polacrilex (Nicotine Gum) 2 MG GUM 2 Milligram ORAL as needed for SMOKING CESSATION Qty = 100 Comments: PATCH Last Taken: 09/22/17 Time: 0830 AM Ondansetron (Zofran Odt) 4 MG TAB.RAPDIS 1 Tablet SUBLINGUAL THREE TIMES DAILY as needed for nausea Qty = 10 Comments: NOT GIVEN IN HOSPITAL Loperamide HCl (Imodium A-D) 2 MG TABLET 0 ORAL SEE INSTRUCTIONS as needed for diarrhea Qty = 24 Instructions: 1 tab after each loose stool up to 7 per day Comments: NOT GIVEN IN HOSPITAL Metoclopramide HCl (Reglan) 10 MG TABLET 1 Tablet ORAL 4 TIMES A DAY as needed for n/v Qty = 30 Instructions: 30 minutes before meals and bedtime Comments: NOT GIVEN IN HOSPITAL Gabapentin (Neurontin) 300 MG CAPSULE 1 Capsule ORAL THREE TIMES DAILY Comments: Last Taken: 09/22/17 Time: 1:35 PM Ascorbic Acid (Vitamin C) (Unknown Strength) CAPSULE Unknown Dose ORAL DAILY Comments: NOT GIVEN IN HOSPITAL Acetaminophen (Mapap) 325 MG TABLET 2 Tablet ORAL THREE TIMES DAILY Comments: Last Taken: 09/22/17 Time: 1:35 PM Lidocaine (Lidocaine) 4 % CREAM..G. 1 Application On the skin 4XDAILY as needed for PAIN Comments: NOT GIVEN IN HOSPITAL Start taking the following new medications: Dicyclomine HCl (Dicyclomine HCl) 20 MG TABLET 1 Tablet ORAL 4 TIMES A DAY Qty = 120 No Refills Instructions: . Comments: NOT GIVEN IN HOSPITAL Copies To: Morgan VEGAS,Yemi Martinez MD,Iliana Attending MD Review Statement Documenting Attending: Juan Jones MD Other Findings: Agree with the above summary of care an plan upon discharge. Will follow-up with BOX ESTIMATOR at [facility].
[2017-09-22 13:50] VITALS: BP 105/64
[2017-09-22] MEDS ORDERED: DICYCLOMINE HCL20 M1 PO ×2 (14:05→14:07)
== END 2017-09-22 14:59 ==
LOC: ERH 18:35 → ERHI 09-21 01:00 → CANRESERV 09-21 02:19 → ENRESERV 09-21 02:19 → 2NB 09-21 03:10
PROVIDERS: Internal Medicine
DX: K29.70 Gastritis, unspecified, without bleeding (principal); F17.200 Nicotine dependence, unspecified, uncomplicated; F41.9 Anxiety disorder, unspecified; F12.90 Cannabis use, unspecified, uncomplicated; R52 Pain, unspecified
CPT/HCPCS: 36592; 74177; 80307; 87040; 96374; 96375; 96376; G0378; J0131; J1170; J2405; J2550; J7060

== ENCOUNTER 2017-09-24 18:47 | Emergency (ER) | payer OTHER ==
[~2017-09-24 18:47] MED LIST changes: +DICYCLOMINE HCL20 M1 PO; +DONNATAL TABL16.2 MG PO; +LIDOCAINE5 GM TOP; +MAPAP325 M1 PO; +MOTRIN IB200 M1 PO; +NEURONTIN300 M1 PO; +VITAMIN C500 M9 PO
[2017-09-24 19:08] VITALS: BP 115/80
[2017-09-24 20:42] LABS: ABSOLUTE BASOPHIL COUNT 0 /CUMM (0.0-0.2); ABSOLUTE EOSINOPHIL COUNT 0 /CUMM (0.0-0.7); ABSOLUTE GRANULOCYTE CT 6.1 /CUMM (1.4-6.5); ABSOLUTE LYMPH COUNT 1.9 /CUMM (1.2-3.4); ABSOLUTE MONOCYTE COUNT 0.3 /CUMM (0.10-0.60); BASOPHIL % 0.5 % (0.0-2.0); EOSINOPHIL % 0 % (0-5); MEAN CORPUSCULAR HGB 31.2 PG (27.0-31.0); MEAN CORPUSCULAR HGB CONC 33.7 G/DL (33.0-37.0); MEAN CORPUSCULAR VOLUME 92.7 FL (81.0-99.0); MEAN PLATELET VOLUME 9.2 FL (7.4-10.4); PLATELET COUNT 312 /CUMM (130-400); RBC DISTRIBUTION WIDTH 12.7 % (11.5-14.5); RED BLOOD CELL CT 4.29 /CUMM (4.20-5.40)
[2017-09-24 20:46] LABS: HEMATOCRIT 39.7 % (37-47); WHITE BLOOD CELL COUNT 8.3 /CUMM (4.8-10.8)
[2017-09-24 20:47] LABS: GRANULOCYTE % 73.3 % (42.2-75.2)
[2017-09-24] MEDS ORDERED: CLONAZEPAM0.5 M2 PO (21:29)
--- NOTE | 2017-09-24 21:51 | ED GI/GU/ABDOMINAL COMPLAINT ---
History of Present Illness General Chief Complaint: Abdominal Pain/Flank Pain Stated Complaint: ABD PAIN Source: patient Exam Limitations: no limitations Vital Signs & Intake/Output Vital Signs & Intake/Output Vital Signs Date Time Temp Pulse Resp B/P B/P Pulse O2 O2 Flow FiO2 Mean Ox Delivery Rate 09/24 2333 Room Air 09/24 1908 98.9 99 15 115/80 98 Room Air ED Intake and Output 09/25 0000 09/24 1200 Intake Total 1000 Output Total Balance 1000 Intake, IV 1000 Allergies Coded Allergies: Sulfa (Sulfonamide Antibiotics) (Severe, HIVES, FLU LIKE SYMPTOMS 09/20/17) metronidazole (From FLAGYL) (Severe, N/V/D 08/31/17) Reconcile Medications Acetaminophen (Mapap) 325 MG TABLET 2 TAB PO TID PAIN (Reported) Ascorbic Acid (Vitamin C) (Unknown Strength) CAPSULE (Unknown Dose) PO DAILY SUPPLEMENT (Reported) Clonazepam 1 MG TABLET 1 TAB PO BID PRN anxiety (Reported) Clonazepam 0.5 MG TABLET 1 TAB PO QPM SLEEP (Reported) Dicyclomine HCl 20 MG TABLET 1 TAB PO 4 TIMES/DAY abdominal pain . Gabapentin (Neurontin) 300 MG CAPSULE 1 CAP PO TID ANXIETY (Reported) Lidocaine 4 % CREAM..G. 1 TRISTIAN TOP 4XDAILY PRN PAIN (Reported) Loperamide HCl (Imodium A-D) 2 MG TABLET 0 PO SEE ADMIN CRITERIA PRN diarrhea 1 tab after each loose stool up to 7 per day Metoclopramide HCl (Reglan) 10 MG TABLET 1 TAB PO 4 TIMES/DAY PRN n/v 30 minutes before meals and bedtime Nicotine Polacrilex (Nicotine Gum) 2 MG GUM 2 MG PO PRN SMOKING CESSATION ( Reported) Norethindrone-E.estradiol-Iron (Junel Fe 1 MG-20 Mcg Tablet) 1 MG-20 MCG (21)/75 MG (7) TABLET 1 TAB PO DAILY CONTROL (Reported) Omeprazole 40 MG CAPSULE.DR 1 CAP PO DAILY ACID REFLUX Ondansetron (Zofran Odt) 4 MG TAB.RAPDIS 1 TAB SL TID PRN nausea Promethazine HCl 12.5 MG TABLET 1 TAB PO Q6-8 PRN NAUSEA Triage Note: PT TO ED, WAS ADMITTED 2 DAYS AGO FOR ILEUS. HAS EXTENSIVE GI HISTORY. NOW HAS BLACK TARRY STOOLS AND VOMIT, DIZZINESS AND CHEST PAIN. C/O UPPER ABD PAIN. Triage Nurses Notes Reviewed? yes LMP (ages 10-50): unknown ? N Is pt currently ? No Onset: Abrupt Duration: week(s): (4), changing over time, continues in ED, getting worse Timing: recent history Quality/Severity: sharpness, severe, stabbing Severity Numbers: 9 Location: epigastric, generalized abdomen Radiation: no radiation Activities at Onset: none Prior Abdominal Problems: similar symptoms Past Sexual History: Unobtainable at this time Associated Symptoms: abdominal pain, nausea/vomiting HPI: 31-year-old female history of pancreatitis, C. difficile, ovarian cysts presents for evaluation of upper abdominal pain nausea vomiting and diarrhea. Patient reports her symptoms have been ongoing for several weeks intermittently. The pain is located mostly in the epigastric and left upper quadrant does not radiate. Pain is described as sharp and stabbing pain. Associated with nausea vomiting and diarrhea. She states that she is vomiting black material and having diarrhea with black stool. The black diarrhea is unchanged however the vomiting black is new. She denies any shortness of breath fever bright red blood per rectum hematemesis. She was recently admitted to the hospital for possible ileus and was evaluated by multiple different specialties without determining etiology for her pain. Patient is also been seen in the emergency department multiple times. (Daniele Allen) Past History Travel History Traveled to [place] past 21 day No Medical History Any Pertinent Medical History? see below for history Neurological: NONE EENT: NONE Cardiovascular: NONE Respiratory: NONE Gastrointestinal: pancreatitis, C.DIFF COLITIS J. POUCH Hepatic: NONE Renal: NONE Musculoskeletal: NONE Psychiatric: NONE Endocrine: NONE Blood Disorders: NONE Cancer(s): NONE EMERGING SOLUTIONS EXECUTIVE/Reproductive: OVARIAN CYST History of MRSA: No History of VRE: No History of CDIFF: No Surgical History Surgical History: PROCTOCOLECTOMY WITH ILEOSTOMY ILEOSTOMY REVERSAL WITH J POUCH. oophorectomy Psychosocial History What is your primary language Romanian Tobacco Use: Quit <30 days ago Family History Hx Contributory? No (Daniele Allen) Review of Systems Review of Systems Constitutional: Reports: no symptoms. EENTM: Reports: no symptoms. Respiratory: Reports: no symptoms. Cardiovascular: Reports: no symptoms. GI: Reports: see HPI, abdominal pain, nausea, vomiting. Genitourinary: Reports: no symptoms. Musculoskeletal: Reports: no symptoms. Skin: Reports: no symptoms. Neurological/Psychological: Reports: no symptoms. Hematologic/Endocrine: Reports: no symptoms. Immunologic/Allergic: Reports: no symptoms. All Other Systems: Reviewed and Negative (Daniele Allen) Physical Exam Physical Exam General Appearance: well developed/nourished, no apparent distress, alert, awake Head: atraumatic, normal appearance Eyes: Bilateral: normal appearance, PERRL, EOMI. Ears, Nose, Throat, Mouth: hearing grossly normal, moist mucous membrane Neck: normal inspection, supple, full range of motion Respiratory: normal breath sounds, chest non-tender, no respiratory distress, lungs clear Cardiovascular: regular rate/rhythm, normal peripheral pulses Peripheral Pulses: 2+ radial (R), 2+ radial (L) Gastrointestinal: normal bowel sounds, soft, no organomegaly, tenderness ( DIFFUSE WORSE EPIGASTRIC ) Back: normal inspection, normal range of motion, LUMBAR PARASPINAL MUSCLES TENDER PALPATION BILATERALLY Extremities: normal range of motion Neurologic/Psych: no motor/sensory deficits, awake, alert, oriented x 3 Skin: intact, normal color, warm/dry Core Measures ACS in differential dx? No Sepsis Present: No Sepsis Focused Exam Completed? No (Daniele Allen) Progress Differential Diagnosis: appendicitis, biliary colic, bowel obstruction, cholecystitis, diverticulitis, gastritis, ischemic bowel, kidney stone, Keturah- Roxann tear, ovarian cyst, ovarian torsion, pancreatitis, PID/cervicitis, peptic ulcer, PUD/GERD, perforated viscous, SBO, UTI/pyelo, oPIOID WITHDRAWAL, DRUG- SEEKING BEHAVIOR Plan of Care: Orders Procedure Date/time Status Add-on Test (ER Only) 09/25 2115 Active URINE 09/24 1912 Complete URINALYSIS 09/24 1912 Complete LIPASE 09/24 1912 Complete COMPREHENSIVE METABOLIC PANEL 09/24 1912 Complete CBC WITHOUT DIFFERENTIAL 09/24 1912 Complete EKG 09/24 1910 Active Laboratory Tests 09/24/172025: Urine Color YEL, Urine Clarity CLEAR, Urine pH 6.5, Ur Specific Warren 1.020, Urine Protein NEG, Urine Ketones NEG, Urine Nitrite NEG, Urine Bilirubin NEG, Urine Urobilinogen 0.2, Ur Leukocyte Esterase NEG, Ur Microscopic EXAM NOT REQUIRED, Urine Hemoglobin NEG, Urine Glucose NEG, Urine Test NEGATIVE 09/24/172020: Anion Gap 14, Estimated GFR > 60, BUN/Creatinine Ratio 6.7 L, Glucose 98, Calcium 10.5 H, Total Bilirubin 0.4, AST 41 H, ALT 46, Alkaline Phosphatase 38 , Total Protein 8.6 H, Albumin 5.3 H, Globulin 3.3, Albumin/Globulin Ratio 1.6 , Lipase 64, CBC w Diff NO MAN DIFF REQ, RBC 4.29, MCV 92.7, MCH 31.2 H, MCHC 33.7, RDW 12.7, MPV 9.2, Gran % 73.3, Lymphocytes % 22.5, Monocytes % 3.7, Eosinophils % 0, Basophils % 0.5, Absolute Granulocytes 6.1, Absolute Lymphocytes 1.9, Absolute Monocytes 0.3, Absolute Eosinophils 0, Absolute Basophils 0 Patient is here for evaluation of diffuse abdominal pain nausea vomiting and diarrhea. She is just admitted for similar symptoms without determining etiology. Patient is also reporting black stools is also unchanged. Had been evaluated by GI and extremity heme-negative. She states the symptom is the nausea and vomiting. There's been no vomiting in the emergency department. Labs CT scan EKG ordered. Patient medicated with IV Tylenol fluids and Zofran. Was no improvement after medications. Additional fluids and Phenergan and 2 mg IV morphine ordered. Patient has been receiving lots of opioids. CT scan is negative for any acute findings. She does have a large amount of stool around the area of her previous bowel surgery. Spoke with Dr. Mckinley who does not feel this represents a significant problem. He is aware of the CT scan findings and lab results which are normal and does not feel this patient needs to be admitted. Patient is still reporting significant pain and nausea. Will continue to monitor. Patient reports she is feeling somewhat better. She was able tolerate fluids. She'll be given a prescription for Phenergan for nausea. She has Zofran and Reglan at home. Advised her to follow-up with her refrigerator assembler soon as possible patient agrees the plan Diagnostic Imaging: Viewed by Me: CT Scan. Discussed w/RAD: CT Scan. Radiology Impression: PATIENT: KALANI MCKENZIE PRESENT AGE: 31 PATIENT ACCOUNT NO: [id number] : 84 LOCATION: [facility] ORDERING PHYSICIAN: Daniele REYES SERVICE DATE: 09/24/17 EXAM TYPE: CAT - CT ABD & PELVIS W IV CONTRAST EXAMINATION: CT ABDOMEN AND PELVIS WITH CONTRAST CLINICAL INFORMATION: Nausea. Vomiting. Diarrhea. Epigastric pain. COMPARISON: CT abdomen pelvis 09/20/2017 TECHNIQUE: Multidetector volumetric imaging was performed of the abdomen and pelvis following IV administration of 95 mL of Optiray 320 intravenous contrast. Sagittal and coronal reformatted images were obtained on the technologist's workstation. DLP: 245.72 mGy-cm FINDINGS: LUNG BASES: The visualized lung bases are unremarkable. LIVER, GALLBLADDER, AND BILIARY TREE: The liver is normal in size, shape, and attenuation. No focal hepatic lesion or biliary ductal dilatation is present. The gallbladder is unremarkable with no evidence of radiopaque gallstones, gallbladder wall thickening, or obvious pericholecystic inflammatory changes. PANCREAS: Unremarkable. SPLEEN: Unremarkable. ADRENAL GLANDS: Unremarkable. KIDNEYS AND URETERS: The kidneys are normal in size, shape, and attenuation. No hydronephrosis, hydroureter, or calculi seen. No perinephric stranding. BLADDER: Unremarkable. GASTROINTESTINAL TRACT: There is a surgical suture line at the distal large bowel, at the sigmoid.. There is a large volume of stool in the segment of the colon. There is no bowel wall thickening or edema around the bowel. No bowel obstruction. The appendix is not seen. The small bowel loops are unremarkable. ABDOMINAL WALL: No significant hernia is appreciated. LYMPH NODES: Normal. VASCULAR: Unremarkable. PELVIC VISCERA: Unremarkable. OSSEOUS STRUCTURES: Unremarkable. IMPRESSION: Patient has had prior surgery of distal large bowel and there is a large collection of stool in this segment of the bowel but no bowel wall thickening or edema. DICTATED BY: Alan Davila MD DATE/TIME DICTATED:09/24/172305 CLINICAL CYTOGENETICIST:MADIE DATE/TIME TRANSCRIBED:09/24/172305 CONFIDENTIAL, DO NOT COPY WITHOUT APPROPRIATE AUTHORIZATION. Initial ED EKG: normal sinus rhythm, no ST T wave changes (Black PA,Daniele) Departure Departure Disposition: HOME OR SELF CARE Condition: Stable Clinical Impression Primary Impression: Abdominal pain Qualifiers: Abdominal location: generalized Qualified Code: R10.84 - Generalized abdominal pain Referrals: Damon Mora MD (PCP/Family) Iliana Martinez MD Additional Instructions: Continue Zofran and Reglan and Phenergan as needed for nausea. Drink plenty of fluids and eat bland foods like bananas rice applesauce and toast. Make a follow-up with YOUr refrigerator assembler as soon as possible. Return if any concerns. Departure Forms: Customer Survey General Discharge Information Prescriptions: Current Visit Scripts Promethazine HCl 1 TAB PO Q6-8 PRN NAUSEA #20 TAB (Daniele Allen) PA/TOP FLAVOR ATTENDANT Co-Sign Statement Statement: ED Attending supervision documentation- I saw and evaluated the patient. I have also reviewed all the pertinent lab results and diagnostic results. I agree with the findings and the plan of care as documented in the PA's/TOP FLAVOR ATTENDANT's documentation. x I have reviewed the ED Record and agree with the PA's/TOP FLAVOR ATTENDANT's documentation. [] Additions or exceptions (if any) to the PAs/TOP FLAVOR ATTENDANT's note and plan are summarized below: [] (Santo VEGAS,Juan Pablo)
--- NOTE | 2017-09-24 23:14 | CT SCAN REPORT ---
EXAMINATION: CT ABDOMEN AND PELVIS WITH CONTRAST CLINICAL INFORMATION: Nausea. Vomiting. Diarrhea. Epigastric pain. COMPARISON: CT abdomen pelvis 09/20/2017 TECHNIQUE: Multidetector volumetric imaging was performed of the abdomen and pelvis following IV administration of 95 mL of Optiray 320 intravenous contrast. Sagittal and coronal reformatted images were obtained on the technologist's workstation. DLP: 245.72 mGy-cm FINDINGS: LUNG BASES: The visualized lung bases are unremarkable. LIVER, GALLBLADDER, AND BILIARY TREE: The liver is normal in size, shape, and attenuation. No focal hepatic lesion or biliary ductal dilatation is present. The gallbladder is unremarkable with no evidence of radiopaque gallstones, gallbladder wall thickening, or obvious pericholecystic inflammatory changes. PANCREAS: Unremarkable. SPLEEN: Unremarkable. ADRENAL GLANDS: Unremarkable. KIDNEYS AND URETERS: The kidneys are normal in size, shape, and attenuation. No hydronephrosis, hydroureter, or calculi seen. No perinephric stranding. BLADDER: Unremarkable. GASTROINTESTINAL TRACT: There is a surgical suture line at the distal large bowel, at the sigmoid.. There is a large volume of stool in the segment of the colon. There is no bowel wall thickening or edema around the bowel. No bowel obstruction. The appendix is not seen. The small bowel loops are unremarkable. ABDOMINAL WALL: No significant hernia is appreciated. LYMPH NODES: Normal. VASCULAR: Unremarkable. PELVIC VISCERA: Unremarkable. OSSEOUS STRUCTURES: Unremarkable. IMPRESSION: Patient has had prior surgery of distal large bowel and there is a large collection of stool in this segment of the bowel but no bowel wall thickening or edema.
[2017-09-25] MEDS ORDERED: PROMETHAZINE12.5 M2 PO (01:02)
== END 2017-09-25 00:20 ==
LOC: ERH 18:47
PROVIDERS: Emergency Medicine
DX: R10.13 Epigastric pain (principal); R11.2 Nausea with vomiting, unspecified; R19.7 Diarrhea, unspecified
CPT/HCPCS: 74177; 81003; 81025; 93005; 93010; 96374; 96375; J0131; J2405; J2550

== ENCOUNTER 2017-10-01 00:15 | Emergency (ER) | payer OTHER ==
[~2017-10-01] VITALS: Ht 160 cm; Wt 54.4 kg
[~2017-10-01 00:15] MED LIST changes: +CLONAZEPAM0.5 M2 PO; +PROMETHAZINE12.5 M2 PO
--- NOTE | 2017-10-01 02:47 | ED GI/GU/ABDOMINAL COMPLAINT ---
History of Present Illness General Chief Complaint: Abdominal Pain/Flank Pain Stated Complaint: "IM HAVING SEVERE ABD PAIN AND VOMITING" Source: patient, family Exam Limitations: no limitations Vital Signs & Intake/Output Vital Signs & Intake/Output Vital Signs Date Time Temp Pulse Resp B/P B/P Pulse O2 O2 Flow FiO2 Mean Ox Delivery Rate 10/01 0242 Room Air 10/01 0033 98.1 112 16 121/78 100 Room Air Room Air Allergies Coded Allergies: Sulfa (Sulfonamide Antibiotics) (Severe, HIVES, FLU LIKE SYMPTOMS 09/20/17) metronidazole (From FLAGYL) (Severe, N/V/D 08/31/17) Reconcile Medications Acetaminophen (Mapap) 325 MG TABLET 2 TAB PO TID PAIN (Reported) Ascorbic Acid (Vitamin C) (Unknown Strength) CAPSULE (Unknown Dose) PO DAILY SUPPLEMENT (Reported) Clonazepam 1 MG TABLET 1 TAB PO BID PRN anxiety (Reported) Clonazepam 0.5 MG TABLET 1 TAB PO QPM SLEEP (Reported) Dicyclomine HCl 20 MG TABLET 1 TAB PO 4 TIMES/DAY abdominal pain . Gabapentin (Neurontin) 300 MG CAPSULE 1 CAP PO TID ANXIETY (Reported) Lidocaine 4 % CREAM..G. 1 TRISTIAN TOP 4XDAILY PRN PAIN (Reported) Loperamide HCl (Imodium A-D) 2 MG TABLET 0 PO SEE ADMIN CRITERIA PRN diarrhea 1 tab after each loose stool up to 7 per day Metoclopramide HCl (Reglan) 10 MG TABLET 1 TAB PO 4 TIMES/DAY PRN n/v 30 minutes before meals and bedtime Nicotine Polacrilex (Nicotine Gum) 2 MG GUM 2 MG PO PRN SMOKING CESSATION ( Reported) Norethindrone-E.estradiol-Iron (Junel Fe 1 MG-20 Mcg Tablet) 1 MG-20 MCG (21)/75 MG (7) TABLET 1 TAB PO DAILY CONTROL (Reported) Omeprazole 40 MG CAPSULE.DR 1 CAP PO DAILY ACID REFLUX Ondansetron (Zofran Odt) 4 MG TAB.RAPDIS 1 TAB SL TID PRN nausea Promethazine HCl 12.5 MG TABLET 1 TAB PO Q6-8 PRN NAUSEA Triage Note: 31YO FEMAEL TO TRIAGE W/CO LOW ABD PAIN, N, V TONITE. STATES UNABLE TO KEEP HER MEDS DOWN. Triage Nurses Notes Reviewed? yes ? N Is pt currently ? No HPI: Patient presents with abdominal pain, nausea vomiting diarrhea. Patient states that this abdominal pain is not like the other times that she's been here to the emergency department this month for abdominal pain. She states now the pain is in the area of her right ovary. She gets a sharp stabbing pain in her right ovary as well as a diffuse crampy abdominal pain. She states the pain has been there all day. There are no aggravating or mitigating factors. The pain waxes and wanes in intensity but does not go away entirely. She rates the pain at anywhere between 5 out of 10 and 10 out of 10. She has been having nausea vomiting as well as diarrhea. There are no fevers or chills. Patient has had 3 CAT scans in the month of August for abdominal pain. Past History Travel History Traveled to [place] past 21 day No Medical History Any Pertinent Medical History? see below for history Neurological: NONE EENT: NONE Cardiovascular: NONE Respiratory: NONE Gastrointestinal: pancreatitis, C.DIFF COLITIS J. 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 oophorectomy Psychosocial History What is your primary language [place] Tobacco Use: Quit <30 days ago ETOH Use: denies use Illicit Drug Use: denies illicit drug use Family History Hx Contributory? No Review of Systems Review of Systems Constitutional: Reports: no symptoms. EENTM: Reports: no symptoms. Respiratory: Reports: no symptoms. Cardiovascular: Reports: no symptoms. GI: Reports: see HPI, abdominal pain, diarrhea, nausea, vomiting. Genitourinary: Reports: no symptoms. Musculoskeletal: Reports: no symptoms. Skin: Reports: no symptoms. Neurological/Psychological: Reports: no symptoms. Hematologic/Endocrine: Reports: no symptoms. Immunologic/Allergic: Reports: no symptoms. All Other Systems: Reviewed and Negative Physical Exam Physical Exam General Appearance: well developed/nourished, alert, awake, anxious, mild distress Head: atraumatic, normal appearance Eyes: Bilateral: PERRL, EOMI. Ears, Nose, Throat, Mouth: hearing grossly normal, moist mucous membrane Neck: normal inspection, supple, full range of motion Respiratory: normal breath sounds, chest non-tender, no respiratory distress, lungs clear Cardiovascular: regular rate/rhythm, normal peripheral pulses Gastrointestinal: normal bowel sounds, soft, guarding (VOLUNTARY) Back: normal inspection, normal range of motion Extremities: normal range of motion Neurologic/Psych: no motor/sensory deficits, awake, alert, oriented x 3, normal gait, normal mood/affect Skin: intact, normal color, warm/dry Core Measures ACS in differential dx? No Sepsis Present: No Sepsis Focused Exam Completed? No Progress Differential Diagnosis: biliary colic, bowel obstruction, diverticulitis, gastritis, hepatitis, ischemic bowel, inflamm bowel dis, ovarian cyst, ovarian torsion, pancreatitis Plan of Care: Orders Procedure Date/time Status LIPASE 10/01 245 Complete COMPREHENSIVE METABOLIC PANEL 10/01 245 Complete CBC WITHOUT DIFFERENTIAL 10/01 245 Complete AMYLASE 10/01 245 Complete URINE 10/01 242 Complete URINALYSIS 10/01 242 Complete Laboratory Tests 10/01/17 0309: Anion Gap 13, Estimated GFR > 60, BUN/Creatinine Ratio 11.3, Glucose 85, Calcium 9.1, Total Bilirubin 0.4, AST 23, ALT 40, Alkaline Phosphatase 38, Total Protein 7.2, Albumin 4.5, Globulin 2.7, Albumin/Globulin Ratio 1.7, Amylase 58, Lipase 63, CBC w Diff NO MAN DIFF REQ, RBC 3.74 L, MCV 94.3, MCH 31.4 H, MCHC 33.3, RDW 12.7, MPV 9.4, Gran % 69.1, Lymphocytes % 24.9, Monocytes % 4.9, Eosinophils % 0.5, Basophils % 0.6, Absolute Granulocytes 5.2, Absolute Lymphocytes 1.9, Absolute Monocytes 0.4, Absolute Eosinophils 0, Absolute Basophils 0 10/01/17 0246: Urine Color YEL, Urine Clarity CLEAR, Urine pH 6.0, Ur Specific [place] <= 1.005 , Urine Protein NEG, Urine Ketones NEG, Urine Nitrite NEG, Urine Bilirubin NEG, Urine Urobilinogen 0.2, Ur Leukocyte Esterase NEG, Ur Microscopic EXAM NOT REQUIRED, Urine Hemoglobin NEG, Urine Glucose NEG, Urine Test NEGATIVE Diagnostic Imaging: Viewed by Me: Radiology Read. Discussed w/RAD: Radiology Read. Radiology Impression: PATIENT: KALANI MCKENZIE PRESENT AGE: 31 PATIENT ACCOUNT NO: [id number] : 84 LOCATION: [facility] ORDERING PHYSICIAN: Anson Caldwell MD SERVICE DATE: 10/01/17 EXAM TYPE: RAD - [id number] VIEWS EXAMINATION: XR ABDOMEN MULTIPLE VIEWS CLINICAL INDICATION: 31-year-old female patient with pain, nausea, vomiting, and diarrhea. COMPARISON: CT exams of the pelvis done this year on August 31, September 02, September 16, September 20, and September 24. Per chart: Recent surgery for ovarian cyst. TECHNIQUE: AP supine views of the abdomen. 2 exposures FINDINGS: There is no evidence of intestinal obstruction. Soft tissues are unremarkable. Lung bases are clear. IMPRESSION: Unremarkable examination. DICTATED BY: Marshall Landry MD DATE/TIME DICTATED:10/01/17707 DELIVERY NURSE:MADIE DATE/ TIME TRANSCRIBED:10/01/17707 CONFIDENTIAL, DO NOT COPY WITHOUT APPROPRIATE AUTHORIZATION. <Electronically signed in Other Vendor System> SIGNED BY: Marshall Landry MD 10/01/17 0716 Initial ED EKG: none Departure Departure Disposition: HOME OR SELF CARE Condition: Stable Clinical Impression Primary Impression: Abdominal pain, unspecified site Referrals: Damon Mora MD (PCP/Family) Additional Instructions: FOLLOW UP WITH YOUR DOCTOR RETURN FOR ANY CONCERNS Departure Forms: Customer Survey General Discharge Information Prescriptions: Current Visit Scripts Ondansetron (Zofran Odt) 1 TAB SL TID PRN NAUSEA #10 TAB
[2017-10-01 03:17] LABS: ABSOLUTE BASOPHIL COUNT 0 /CUMM (0.0-0.2); ABSOLUTE EOSINOPHIL COUNT 0 /CUMM (0.0-0.7); ABSOLUTE GRANULOCYTE CT 5.2 /CUMM (1.4-6.5); ABSOLUTE LYMPH COUNT 1.9 /CUMM (1.2-3.4); ABSOLUTE MONOCYTE COUNT 0.4 /CUMM (0.10-0.60); BASOPHIL % 0.6 % (0.0-2.0); EOSINOPHIL % 0.5 % (0-5); GRANULOCYTE % 69.1 % (42.2-75.2); HEMATOCRIT 35.3 % (37-47); MEAN CORPUSCULAR HGB 31.4 PG (27.0-31.0); MEAN CORPUSCULAR HGB CONC 33.3 G/DL (33.0-37.0); MEAN CORPUSCULAR VOLUME 94.3 FL (81.0-99.0); MEAN PLATELET VOLUME 9.4 FL (7.4-10.4); PLATELET COUNT 264 /CUMM (130-400); RBC DISTRIBUTION WIDTH 12.7 % (11.5-14.5); RED BLOOD CELL CT 3.74 /CUMM (4.20-5.40); WHITE BLOOD CELL COUNT 7.6 /CUMM (4.8-10.8)
--- NOTE | 2017-10-01 07:16 | RADIOLOGY REPORT ---
EXAMINATION: XR ABDOMEN MULTIPLE VIEWS CLINICAL INDICATION: 31-year-old female patient with pain, nausea, vomiting, and diarrhea. COMPARISON: CT exams of the pelvis done this year on August 31, September 02, September 16, September 20, and September 24. Per chart: Recent surgery for ovarian cyst. TECHNIQUE: AP supine views of the abdomen. 2 exposures FINDINGS: There is no evidence of intestinal obstruction. Soft tissues are unremarkable. Lung bases are clear. IMPRESSION: Unremarkable examination.
[2017-10-01] MEDS ORDERED: ZOFRAN ODT4 M1 SL (07:47)
[2017-10-01 08:00] VITALS: BP 109/74
== END 2017-10-01 08:02 ==
LOC: ERH 00:15
PROVIDERS: Emergency Medicine
DX: R10.9 Unspecified abdominal pain (principal); R11.2 Nausea with vomiting, unspecified; R19.7 Diarrhea, unspecified
CPT/HCPCS: 74021; 81003; 81025; 96361; 96374; 96375; 96376; J1885; J2405

== ENCOUNTER 2017-10-28 23:10 | Emergency (ER) | payer OTHER ==
[~2017-10-28] VITALS: Ht 160 cm; Wt 56.7 kg
--- NOTE | 2017-10-29 00:01 | ED GI/GU/ABDOMINAL COMPLAINT ---
History of Present Illness General Chief Complaint: Abdominal Pain/Flank Pain Stated Complaint: ABD PAIN, NAUSEA, DIARRHEA PER PT Source: patient Exam Limitations: no limitations Vital Signs & Intake/Output Vital Signs & Intake/Output Vital Signs Date Time Temp Pulse Resp B/P B/P Pulse O2 O2 Flow FiO2 Mean Ox Delivery Rate 10/29 0012 98.5 86 20 110/70 99 Room Air Allergies Coded Allergies: Sulfa (Sulfonamide Antibiotics) (Severe, HIVES, FLU LIKE SYMPTOMS 09/20/17) metronidazole (From FLAGYL) (Severe, N/V/D 08/31/17) Reconcile Medications Acetaminophen (Mapap) 325 MG TABLET 2 TAB PO TID PAIN (Reported) Ascorbic Acid (Vitamin C) (Unknown Strength) CAPSULE (Unknown Dose) PO DAILY SUPPLEMENT (Reported) Clonazepam 1 MG TABLET 1 TAB PO BID PRN anxiety (Reported) Clonazepam 0.5 MG TABLET 1 TAB PO QPM SLEEP (Reported) Dicyclomine HCl 20 MG TABLET 1 TAB PO 4 TIMES/DAY abdominal pain . Gabapentin (Neurontin) 300 MG CAPSULE 1 CAP PO TID ANXIETY (Reported) Lidocaine 4 % CREAM..G. 1 TRISTIAN TOP 4XDAILY PRN PAIN (Reported) Loperamide HCl (Imodium A-D) 2 MG TABLET 0 PO SEE ADMIN CRITERIA PRN diarrhea 1 tab after each loose stool up to 7 per day Metoclopramide HCl (Reglan) 10 MG TABLET 1 TAB PO 4 TIMES/DAY PRN n/v 30 minutes before meals and bedtime Nicotine Polacrilex (Nicotine Gum) 2 MG GUM 2 MG PO PRN SMOKING CESSATION ( Reported) Norethindrone-E.estradiol-Iron (Junel Fe 1 MG-20 Mcg Tablet) 1 MG-20 MCG (21)/75 MG (7) TABLET 1 TAB PO DAILY CONTROL (Reported) Omeprazole 40 MG CAPSULE.DR 1 CAP PO DAILY ACID REFLUX Ondansetron (Zofran Odt) 4 MG TAB.RAPDIS 1 TAB SL TID PRN NAUSEA Ondansetron (Zofran Odt) 4 MG TAB.RAPDIS 1 TAB SL TID PRN nausea Promethazine HCl 12.5 MG TABLET 1 TAB PO Q6-8 PRN NAUSEA Triage Nurses Notes Reviewed? yes ? n Is pt currently ? No Onset: Gradual Duration: hour(s): Timing: recent history Quality/Severity: moderate, sharpness, severe Location: epigastric, left upper quadrant Radiation: no radiation Activities at Onset: none Prior Abdominal Problems: similar symptoms Modifying Factors: Worsens With: palpation. Associated Symptoms: abdominal pain, nausea/vomiting HPI: 31 yo woman in prior good health presents with 9 hours of mid epigastric and left upper quadrant abdominal discomfort, associated with nausea and diarrhea, without vomiting. She notes feeling "hot flashes", without dysuria, flank pain, chills, chest pain , cough, dyspnea. She is otherwise well. Past History Travel History Traveled to [place] past 21 day No Medical History Any Pertinent Medical History? see below for history Neurological: NONE EENT: NONE Cardiovascular: NONE Respiratory: NONE Gastrointestinal: pancreatitis, C.DIFF COLITIS J. POUCH Hepatic: NONE Renal: NONE Musculoskeletal: NONE Psychiatric: NONE Endocrine: NONE Blood Disorders: NONE Cancer(s): NONE LEAD ADVISOR/Reproductive: OVARIAN CYST History of MRSA: No History of VRE: No History of CDIFF: No Surgical History Surgical History: PROCTOCOLECTOMY WITH ILEOSTOMY ILEOSTOMY REVERSAL WITH J POUCH. oophorectomy Psychosocial History What is your primary language [place] Family History Hx Contributory? No Review of Systems Review of Systems Constitutional: Reports: no symptoms. EENTM: Reports: no symptoms. Respiratory: Reports: no symptoms. Cardiovascular: Reports: no symptoms. GI: Reports: no symptoms. Genitourinary: Reports: no symptoms. Musculoskeletal: Reports: no symptoms. Skin: Reports: no symptoms. Neurological/Psychological: Reports: no symptoms. Hematologic/Endocrine: Reports: no symptoms. Immunologic/Allergic: Reports: no symptoms. All Other Systems: Reviewed and Negative Physical Exam Physical Exam General Appearance: well developed/nourished, mild distress, moderate distress Head: atraumatic, normal appearance Eyes: Bilateral: normal appearance. Ears, Nose, Throat, Mouth: hearing grossly normal, moist mucous membrane Neck: normal inspection, supple, full range of motion Respiratory: normal breath sounds, chest non-tender, no respiratory distress, quiet respiration, lungs clear Cardiovascular: regular rate/rhythm Gastrointestinal: normal bowel sounds, soft, mid epigastric and left upper quadrant tenderness to palpation. no rebound. no guarding. Back: normal inspection Extremities: normal range of motion Neurologic/Psych: no motor/sensory deficits, awake, alert, oriented x 3 Skin: intact, normal color, warm/dry Core Measures ACS in differential dx? No Sepsis Present: No Sepsis Focused Exam Completed? No Progress Differential Diagnosis: gastritis, colitis, pancreatitis vs other. Plan of Care: Orders Procedure Date/time Status LIPASE 10/28 2318 Complete HEPATIC FUNCTION PANEL 10/28 2318 Complete HUMAN BETA HCG SCREEN 10/28 2318 Complete CBC WITHOUT DIFFERENTIAL 10/28 2318 Complete BASIC METABOLIC PANEL 10/28 2318 Complete AMYLASE 10/28 2318 Complete Laboratory Tests 10/29/17 0007: Anion Gap 8, Estimated GFR > 60, BUN/Creatinine Ratio 13.3, Glucose 87, Calcium 9.8, Total Bilirubin 0.4, Direct Bilirubin 0.2, AST 20, ALT 27, Alkaline Phosphatase 40, Total Protein 7.4, Albumin 4.5, Amylase 52, Lipase 53, Total Beta HCG NEGATIVE, CBC w Diff NO MAN DIFF REQ, RBC 4.01 L, MCV 91.4, MCH 31.3 H, MCHC 34.2, RDW 12.3, MPV 9.2, Gran % 59.5, Lymphocytes % 32.0, Monocytes % 6.2, Eosinophils % 1.2, Basophils % 1.1, Absolute Granulocytes 3.5, Absolute Lymphocytes 1.9, Absolute Monocytes 0.4, Absolute Eosinophils 0.1, Absolute Basophils 0.1 Diagnostic Imaging: Viewed by Me: CT Scan. Discussed w/RAD: CT Scan. Radiology Impression: PATIENT: KALANI MCKENZIE PRESENT AGE: 31 PATIENT ACCOUNT NO: [id number] : 84 LOCATION: [facility] ORDERING PHYSICIAN: Chris Gutiérrez MD SERVICE DATE: 10/29/17 EXAM TYPE: CAT - CT ABD & PELVIS W/O IV CONTRAS EXAMINATION: CT ABDOMEN AND PELVIS WITHOUT CONTRAST CLINICAL INFORMATION: Left upper quadrant/mid epigastric discomfort COMPARISON: 09/24/2017 TECHNIQUE: Multidetector volumetric imaging was performed from the superior aspect of the liver through the pubic symphysis. Sagittal and coronal reformatted images were obtained on the technologist's workstation. DLP: 251.01 mGy-cm FINDINGS: LUNG BASES: The visualized lung bases are unremarkable. LIVER, GALLBLADDER, AND BILIARY TREE: The liver is normal in size, shape, and attenuation. No focal hepatic lesion or biliary ductal dilatation is present. The gallbladder is grossly unremarkable. PANCREAS: Unremarkable. SPLEEN: Unremarkable. ADRENAL GLANDS: Unremarkable. KIDNEYS AND URETERS: The kidneys are normal in size, shape, and attenuation. No hydronephrosis, hydroureter, or calculi seen. No perinephric stranding. BLADDER: Unremarkable. GASTROINTESTINAL TRACT: There is redemonstrated suture line along the distal colon in the pelvis, with a moderate amount of stool in this region. No evidence of bowel obstruction. No free fluid or free air is seen. ABDOMINAL WALL: No significant hernia is appreciated. LYMPH NODES: No lymphadenopathy is seen, though assessment is limited in the absence of intravenous contrast. VASCULAR: Unremarkable. PELVIC VISCERA: Unremarkable. OSSEOUS STRUCTURES: Unremarkable. IMPRESSION: No acute findings identified in the abdomen/pelvis. DICTATED BY: Anant Vieyra MD DATE/TIME DICTATED:10/29/17229 READY TO WEAR DEPARTMENT MANAGER:MADIE DATE/TIME TRANSCRIBED:10/29/17229 CONFIDENTIAL, DO NOT COPY WITHOUT APPROPRIATE AUTHORIZATION. <Electronically signed in Other Vendor System> SIGNED BY: Anant Vieyra MD 10/29/17 0241 Initial ED EKG: none Departure Departure Disposition: HOME OR SELF CARE Condition: Stable Clinical Impression Primary Impression: Abdominal pain Referrals: Damon Mora MD (PCP/Family) Departure Forms: Customer Survey General Discharge Information Comments 10/29/17, 1:20am... pt with benign labs, but still with left upper quadrant abd pain... discussed risks and benefits of ct scan with patient... given history of surgeries and degree of abdominal discomfort, ct scan is merited. 10/29/17, 3:34am... pt sleeping comfortably... ct scan benign... discussed at length. she has established care with a surgeon and powerhouse mechanic helper.... she will follow up with her care team. close follow up advised.
[2017-10-29 00:20] LABS: ABSOLUTE BASOPHIL COUNT 0.1 /CUMM (0.0-0.2); ABSOLUTE EOSINOPHIL COUNT 0.1 /CUMM (0.0-0.7); ABSOLUTE GRANULOCYTE CT 3.5 /CUMM (1.4-6.5); ABSOLUTE LYMPH COUNT 1.9 /CUMM (1.2-3.4); ABSOLUTE MONOCYTE COUNT 0.4 /CUMM (0.10-0.60); BASOPHIL % 1.1 % (0.0-2.0); EOSINOPHIL % 1.2 % (0-5); GRANULOCYTE % 59.5 % (42.2-75.2); HEMATOCRIT 36.7 % (37-47); MEAN CORPUSCULAR HGB 31.3 PG (27.0-31.0); MEAN CORPUSCULAR HGB CONC 34.2 G/DL (33.0-37.0); MEAN CORPUSCULAR VOLUME 91.4 FL (81.0-99.0); MEAN PLATELET VOLUME 9.2 FL (7.4-10.4); PLATELET COUNT 239 /CUMM (130-400); RBC DISTRIBUTION WIDTH 12.3 % (11.5-14.5); RED BLOOD CELL CT 4.01 /CUMM (4.20-5.40); WHITE BLOOD CELL COUNT 5.9 /CUMM (4.8-10.8)
--- NOTE | 2017-10-29 02:41 | CT SCAN REPORT ---
EXAMINATION: CT ABDOMEN AND PELVIS WITHOUT CONTRAST CLINICAL INFORMATION: Left upper quadrant/mid epigastric discomfort COMPARISON: 09/24/2017 TECHNIQUE: Multidetector volumetric imaging was performed from the superior aspect of the liver through the pubic symphysis. Sagittal and coronal reformatted images were obtained on the technologist's workstation. DLP: 251.01 mGy-cm FINDINGS: LUNG BASES: The visualized lung bases are unremarkable. LIVER, GALLBLADDER, AND BILIARY TREE: The liver is normal in size, shape, and attenuation. No focal hepatic lesion or biliary ductal dilatation is present. The gallbladder is grossly unremarkable. PANCREAS: Unremarkable. SPLEEN: Unremarkable. ADRENAL GLANDS: Unremarkable. KIDNEYS AND URETERS: The kidneys are normal in size, shape, and attenuation. No hydronephrosis, hydroureter, or calculi seen. No perinephric stranding. BLADDER: Unremarkable. GASTROINTESTINAL TRACT: There is redemonstrated suture line along the distal colon in the pelvis, with a moderate amount of stool in this region. No evidence of bowel obstruction. No free fluid or free air is seen. ABDOMINAL WALL: No significant hernia is appreciated. LYMPH NODES: No lymphadenopathy is seen, though assessment is limited in the absence of intravenous contrast. VASCULAR: Unremarkable. PELVIC VISCERA: Unremarkable. OSSEOUS STRUCTURES: Unremarkable. IMPRESSION: No acute findings identified in the abdomen/pelvis.
[2017-10-29 03:38] VITALS: BP 110/80
== END 2017-10-29 03:38 ==
LOC: ERH 23:10
PROVIDERS: Pediatrics
DX: R10.13 Epigastric pain (principal); R11.0 Nausea; R19.7 Diarrhea, unspecified
CPT/HCPCS: 74176; 96365; 96366; 96375; J0131; J1885; J2405; J2550